=== PATIENT | male | born 1960 | race Caucasian/White ===

== ENCOUNTER 2019-12-29 10:41 | Outpatient (CLI) | payer OTHER, SELFPAY ==
--- NOTE | ~2019-12-29 | CT_ITS ---
EXAMINATION:CT lung screening DATE: 12/29/2019 11:10 INDICATION: Personal history of tobacco dependence. Current smoker with 40 pack year history. TECHNIQUE: Computed tomography (CT) of the chest was performed without intravenous contrast. Automate d exposure control and iterative reconstruction technique were employed. The dose-length product (DLP ) was 135.90 mGy-cm. COMPARISON: Chest CT 01/12/2019 FINDINGS: The lungs demonstrate mild atelectasis. There is a 3 mm nodule in left upper lobe. No pleur al effusion. The heart size is normal. There are coronary artery calcifications. No pericardial effus ion. There is a left chest wall pacer with leads in the right atrium and right ventricle. There is mi ld thoracic spondylosis. IMPRESSION: 1. Lung-RADS category 2: Benign appearance or behavior. Continue annual screening with noncontrast lo w-dose chest CT in 12 months. Reviewed, dictated and finalized at location A. IMPRESSION: 1. Lung-RADS category 2: Benign appearance or behavior. Continue annual screeni ng with noncontrast low-dose chest CT in 12 months.
== END 2019-12-29 10:42 | disposition home or self-care (01) ==
LOC: ANHIMG 10:48
PROVIDERS: PCP Family Medicine; Visit Provider Internal Medicine Critical Care Medicine
DX: Z12.2 Encounter for screening for malignant neoplasm of respiratory organs (principal); Z87.891 Personal history of nicotine dependence
CPT/HCPCS: G0297

== ENCOUNTER 2023-05-06 13:00 | Outpatient (CLI) | payer MEDICARE, SELFPAY ==
--- NOTE | ~2023-05-06 | CT_ITS ---
EXAMINATION: CT lung screening DATE: 05/06/2023 13:20 INDICATION: Tobacco use TECHNIQUE: Computed tomography (CT) of the chest was performed without intravenous contrast. The dose -length product was 147.51 mGy-cm. Automated exposure control and iterative reconstruction technique were employed. COMPARISON: CT dated 12/29/2019 FINDINGS: No significant pleural or pericardial effusion. No thoracic lymphadenopathy. There is ather osclerosis and ectasia of the aorta. There is a 5 mm right upper lobe nodule, image 35. There is a 6 mm right middle lobe nodule, image 62. There is a 4 mm right lower lobe nodule, image 61. There are c lustered 3 mm left lower lobe nodules. There is an 8 mm left upper lobe nodule, image 50. No pneumoth orax. No endobronchial lesions. IMPRESSION: 1. Multiple category 4B, very suspicious: Recommend pet/CT scan for further evaluation. Reviewed, dictated and finalized at location B. IMPRESSION: 1. Multiple category 4B, very suspicious: Recommend pet/CT scan for further ev aluation.
== END 2023-05-06 13:01 | disposition home or self-care (01) ==
PROVIDERS: PCP Family Medicine; Visit Provider Nurse Practitioner Family
DX: Z12.2 Encounter for screening for malignant neoplasm of respiratory organs (principal); F17.210 Nicotine dependence, cigarettes, uncomplicated
CPT/HCPCS: 71271

== ENCOUNTER 2023-05-21 07:19 | Outpatient (CLI) | payer MEDICARE, SELFPAY ==
--- NOTE | ~2023-05-21 | PE_ITS ---
EXAMINATION: PET skull to mid thigh DATE: 05/21/2023 10:58 INDICATION: Lung nodule TECHNIQUE: Blood glucose level was 166 mg/dL. 5.507 mCi of 18-fluorodeoxyglucose (18-FDG) was adminis tered i.v. Low dose computed tomography (CT) images were acquired from the base of the brain to the p roximal thighs for attenuation correction and anatomic localization. Positron emission tomography (PE T) images were acquired in the same distribution beginning 56 minutes after injection. Images includi ng fused PET/CT images were reconstructed in axial, coronal, and sagittal planes. Automated exposure control technique was employed. The dose-length product was 828.26mGy-cm. COMPARISON: Chest CT dated 05/16/2023 FINDINGS: Head/neck: There is symmetric increased activity in the oral cavity, laryngeal muscles and ocular muscles withou t CT correlate, likely physiologic. There is prominent mucosal thickening with mild associated FDG up take at the floor of the right maxillary sinus. No pathologically enlarged cervical lymphadenopathy o r other suspicious foci of increased FDG uptake in the visualized head or neck. Chest: Mild emphysema. No significant interval change in multiple subcentimeter pulmonary nodules scattered throughout both lungs, the largest measuring 8mm in the left upper lobe and 7 mm in the right upper l obe. These are all without appreciable increased FDG uptake with maximal SUV of the largest left uppe r lobe nodule of 1.4 which is significantly lower than the blood pool. No new or enlarging pulmonary nodules identified. Mild discoid atelectasis at the bilateral lung bases. Heart size is normal. Ather osclerotic coronary artery calcific a elder. Is also a dual-lead cardiac pacemaker/AICD with lead tips at the right atrial appendage and apex of the right ventricle. No pericardial effusion. No pathologi mara enlarged or FDG avid thoracic lymphadenopathy. Abdomen/pelvis/proximal thighs: Physiologic renal accumulation and excretion of FDG activity in the kidneys, bladder and along portio ns of ureters. Normal degree and heterogenous pattern of increased uptake throughout the liver withou t radiologic correlate or dominant FDG avid lesion. The gallbladder, pancreas, spleen and bilateral a drenal glands are normal. Mild to moderate uptake scattered throughout the bowels without radiologic correlate, also likely physiologic. Normal appendix. Prostatomegaly. No other abnormal foci of increa sed FDG uptake or pathologically enlarged lymphadenopathy in the abdomen, pelvis or proximal thighs. Musculoskeletal: No suspicious lytic, blastic or FDG avid bone lesions. IMPRESSION: 1. No significant FDG uptake associated with multiple scattered subcentimeter pulmonary nodules. Alth ough reassuring this does not absolutely exclude malignancy and would recommend 3 month follow-up low -dose noncontrast chest CT. 2. No other abnormal FDG avid lesions in the neck, chest, abdomen or pelvis to suggest malignancy or metastatic disease. Reviewed, dictated and finalized at location A. IMPRESSION: 1. No significant FDG uptake associated with multiple scattered subcentimeter p ulmonary nodules. Although reassuring this does not absolutely exclude malignan cy and would recommend 3 month follow-up low-dose noncontrast chest CT. 2. No other abnormal FDG avid lesions in the neck, chest, abdomen or pelvis to suggest malignancy or metastatic disease.
[2023-05-21 08:15] LABS: Glucose Point of Care 166 mg/dl (65-105)
== END 2023-05-21 07:20 | disposition home or self-care (01) ==
PROVIDERS: PCP Family Medicine; Visit Provider Nurse Practitioner Family
DX: R91.8 Other nonspecific abnormal finding of lung field (principal); R91.1 Solitary pulmonary nodule
CPT/HCPCS: 78815; A9552

== ENCOUNTER 2023-08-22 14:06 | Outpatient (CLI) | payer MEDICARE, SELFPAY ==
--- NOTE | ~2023-08-22 | CT_ITS ---
CT Scan of the Chest without Contrast: Clinical Indication: Nonspecific abnormal finding of lung field Technique: Contiguous sections were acquired throughout the chest without intravenous contrast. Dose reduction technique was used on this scan by utilizing automated exposure control and iterative recon struction technique. The dose-length product (DLP) was 293.75 mGy-cm. COMPARISON: 05/06/2023 Findings: There is no evidence of any significant mediastinal, hilar or axillary lymphadenopathy. There are ath erosclerotic calcifications of the aorta and coronary arteries. There is no evidence of pleural or pericardial effusion. Pulmonary nodules in the right upper and middle lobes, and left upper lobe, are decreased in size fro m prior exam. Reference nodule left upper lobe is decreased, now measuring 4 mm in diameter. Images through the upper abdomen reveal no abnormalities. Impression: Bilateral pulmonary nodules are decreased in size from prior exam, most compatible with slowly resolv ing infectious/inflammatory process. Reviewed, dictated and finalized at location . FOOD SERVICES MANAGER Impression: Bilateral pulmonary nodules are decreased in size from prior exam, most compati ble with slowly resolving infectious/inflammatory process.
== END 2023-08-22 14:07 | disposition home or self-care (01) ==
PROVIDERS: PCP Family Medicine; Visit Provider Nurse Practitioner Family
DX: R91.8 Other nonspecific abnormal finding of lung field (principal)
CPT/HCPCS: 71250

== ENCOUNTER 2024-08-24 10:27 | Outpatient (CLI) | payer MEDICARE, SELFPAY ==
--- NOTE | ~2024-08-24 | CT_ITS ---
CT Scan of the Chest without Contrast: Clinical Indication: Lung cancer screening, nicotine dependence Technique: Contiguous sections were acquired throughout the chest without intravenous contrast. Dose reduction technique was used on this scan by utilizing automated exposure control and iterative recon struction technique. The dose-length product (DLP) was 112.08 mGy-cm. COMPARISON: 08/22/2023 Findings: There is no evidence of any significant mediastinal, hilar or axillary lymphadenopathy. Coronary sheeba ry calcifications are present. There is no evidence of pleural or pericardial effusion. There are multiple new, scattered, subcentimeter pulmonary nodules bilaterally, involving all pulmona ry lobes. Largest nodules in the right lower lobe measuring 7 mm (axial image 57). Images through the upper abdomen reveal stable low-density right adrenal nodule, compatible with yumiko iain. Impression: Lung RADS 4A: Suspicious. 3 month follow-up CT recommended. Reviewed, dictated and finalized at [facility]. ICE COORDINATOR Impression: Lung RADS 4A: Suspicious. 3 month follow-up CT recommended.
--- OUTSIDE RECORDS SUMMARY | 2024-08-24 11:31 | XMS_ITS | Encounter Summary ---
Author Organization [facility] Facility Care Team Providers Care Bog Worker Name Role Phone Loco Linares MD Primary Care Provider [phone] [phone] Peewee Cornelius MD Unavailable [phone] Encounter Details Date Type Department Care Team (Latest Contact Info) Description 09/09/2018 Orders Only [facility] CLINCONV ProviderMadai MD [address] [place] [address] Social History Tobacco Use Types Packs/Day Years Used Date Smoking Tobacco: Never Assessed Sex and Gender Information Value Date Recorded Sex Assigned at Not on file Legal Sex Male 2:53 AM FLAT FOLDER Gender Identity Not on file Sexual Orientation Not on file documented as of this encounter Plan of Treatment Not on file documented as of this encounter Procedures Procedure Name Priority Date/Time Associated Diagnosis Comments CARDIOLOGY REPORT 09/09/2018 12: 00 AM FLAT FOLDER documented in this encounter Results * CARDIOLOGY REPORT (09/09/2018 12:00 AM FLAT FOLDER) Anatomical Region Laterality Modality Other Narrative 09/09/2018 12:00 AM FLAT FOLDER Ordered by an unspecified provider. Historical Provider [facility] CARMELO MEDRANO Final Result documented in this encounter Visit Diagnoses Not on filedocumented in this encounter Care Teams Bog Worker Relationship Specialty Start Date End Date Loco Linares MD PCP - General Family Medicine 12/06/18 Peewee Cornelius MD [address] [place] [address] Tonnage Compilation Clerk Cardiology 04/15/19 documented as of this encounter
--- OUTSIDE RECORDS SUMMARY | 2024-08-24 11:31 | XMS_ITS | Encounter Summary ---
Author Organization [facility] Facility Care Team Providers Care Epoxy Coatings Installer Name Role Phone Loco Linares MD Primary Care Provider [phone] Peewee Cornelius MD Unavailable [phone] Encounter Details Date Type Department Care Team (Latest Contact Info) Description 03/13/2018 Orders Only [facility] CLINCONV ProviderMadai MD [address] [place] [address] Social History Tobacco Use Types Packs/Day Years Used Date Smoking Tobacco: Never Assessed Sex and Gender Information Value Date Recorded Sex Assigned at Not on file Legal Sex Male 2:53 AM SCAFFOLD BUILDER Gender Identity Not on file Sexual Orientation Not on file documented as of this encounter Plan of Treatment Not on file documented as of this encounter Procedures Procedure Name Priority Date/Time Associated Diagnosis Comments CARDIOLOGY REPORT 03/14/2018 12: 00 AM CDT documented in this encounter Results * CARDIOLOGY REPORT (03/14/2018 12:00 AM CDT) Anatomical Region Laterality Modality Other Narrative 03/14/2018 12:00 AM CDT Ordered by an unspecified provider. Historical Provider [facility] CARMELO MEDRANO Final Result documented in this encounter Visit Diagnoses Not on filedocumented in this encounter Care Teams Epoxy Coatings Installer Relationship Specialty Start Date End Date Loco Linares MD PCP - General Family Medicine 12/06/18 Peewee Cornelius MD [address] [place] [address] Bilingual Sales Consultant Cardiology 04/15/19 documented as of this encounter
--- OUTSIDE RECORDS SUMMARY | 2024-08-24 11:31 | XMS_ITS | Encounter Summary ---
Author Organization [facility] Facility Care Team Providers Care Tamale Machine Feeder Name Role Phone Loco Linares MD Primary Care Provider [phone] [phone] Peewee Cornelius MD Unavailable [phone] Encounter Details Date Type Department Care Team (Latest Contact Info) Description 06/09/2018 Orders Only [facility] CLINCONV ProviderMadai MD [address] [place] [address] Social History Tobacco Use Types Packs/Day Years Used Date Smoking Tobacco: Never Assessed Sex and Gender Information Value Date Recorded Sex Assigned at Not on file Legal Sex Male 2:53 AM SPEECH PATHOLOGIST Gender Identity Not on file Sexual Orientation Not on file documented as of this encounter Plan of Treatment Not on file documented as of this encounter Procedures Procedure Name Priority Date/Time Associated Diagnosis Comments CARDIOLOGY REPORT 06/09/2018 12: 00 AM SPEECH PATHOLOGIST documented in this encounter Results * CARDIOLOGY REPORT (06/09/2018 12:00 AM SPEECH PATHOLOGIST) Anatomical Region Laterality Modality Other Narrative 06/09/2018 12:00 AM SPEECH PATHOLOGIST Ordered by an unspecified provider. Historical Provider [facility] CARMELO MEDRANO Final Result documented in this encounter Visit Diagnoses Not on filedocumented in this encounter Care Teams Tamale Machine Feeder Relationship Specialty Start Date End Date Loco Linares MD PCP - General Family Medicine 12/06/18 Peewee Cornelius MD [address] [place] [address] Armored Car Guard Cardiology 04/15/19 documented as of this encounter
--- OUTSIDE RECORDS SUMMARY | 2024-08-24 11:32 | XMS_ITS | Encounter Summary ---
Author Organization [facility] Facility Care Team Providers Care Warp Knitting Machine Operator Name Role Phone Loco Linares MD Primary Care Provider [phone] Peewee Cornelius MD Unavailable [phone] Encounter Details Date Type Department Care Team (Latest Contact Info) Description 03/11/2017 Orders Only [facility] CLINCONV ProviderMadai MD [address] [place] [address] Social History Tobacco Use Types Packs/Day Years Used Date Smoking Tobacco: Never Assessed Sex and Gender Information Value Date Recorded Sex Assigned at Not on file Legal Sex Male 2:53 AM BACK PANEL PADDER Gender Identity Not on file Sexual Orientation Not on file documented as of this encounter Plan of Treatment Not on file documented as of this encounter Procedures Procedure Name Priority Date/Time Associated Diagnosis Comments CARDIOLOGY REPORT 03/12/2017 12: 00 AM CDT documented in this encounter Results * CARDIOLOGY REPORT (03/12/2017 12:00 AM CDT) Anatomical Region Laterality Modality Other Narrative 03/12/2017 12:00 AM CDT Ordered by an unspecified provider. Historical Provider [facility] CARMELO MEDRANO Final Result documented in this encounter Visit Diagnoses Not on filedocumented in this encounter Care Teams Warp Knitting Machine Operator Relationship Specialty Start Date End Date Loco Linares MD PCP - General Family Medicine 12/06/18 Peewee Cornelius MD [address] [place] [address] Research Director Cardiology 04/15/19 documented as of this encounter
--- OUTSIDE RECORDS SUMMARY | 2024-08-24 11:32 | XMS_ITS | Encounter Summary ---
Author Organization [facility] Facility Care Team Providers Care Flat Sorting Machine Clerk Name Role Phone Loco Linares MD Primary Care Provider [phone] Peewee Cornelius MD Unavailable Encounter Details Date Type Department Care Team (Latest Contact Info) Description 02/20/2016 Orders Only [facility] CLINCONV ProviderMadai MD [address] [place] [address] Social History Tobacco Use Types Packs/Day Years Used Date Smoking Tobacco: Never Assessed Sex and Gender Information Value Date Recorded Sex Assigned at Not on file Legal Sex Male 2:53 AM SILVER SPRAY WORKER Gender Identity Not on file Sexual Orientation Not on file documented as of this encounter Plan of Treatment Not on file documented as of this encounter Procedures Procedure Name Priority Date/Time Associated Diagnosis Comments CARDIOLOGY REPORT 02/21/2016 12: 00 AM CDT documented in this encounter Results * CARDIOLOGY REPORT (02/21/2016 12:00 AM CDT) Anatomical Region Laterality Modality Other Narrative 02/21/2016 12:00 AM CDT Ordered by an unspecified provider. Historical Provider [facility] C[facility] CARMELO MEDRANO Final Result documented in this encounter Visit Diagnoses Not on filedocumented in this encounter Care Teams Flat Sorting Machine Clerk Relationship Specialty Start Date End Date Loco Linares MD PCP - General Family Medicine 12/06/18 Peewee Cornelius MD [address] [place] [address] Director Of Planning Cardiology 04/15/19 documented as of this encounter
--- OUTSIDE RECORDS SUMMARY | 2024-08-24 11:32 | XMS_ITS | Encounter Summary ---
Author Organization [facility] Facility Care Team Providers Care Federal District Law Clerk Name Role Phone Loco Linares MD Primary Care Provider [phone] Peewee Cornelius MD Unavailable [phone] Encounter Details Date Type Department Care Team (Latest Contact Info) Description 05/14/2017 Orders Only [facility] CLINCONV ProviderMadai MD [address] [place] [address] Social History Tobacco Use Types Packs/Day Years Used Date Smoking Tobacco: Never Assessed Sex and Gender Information Value Date Recorded Sex Assigned at Not on file Legal Sex Male 2:53 AM FURNACE BUILDER Gender Identity Not on file Sexual Orientation Not on file documented as of this encounter Plan of Treatment Not on file documented as of this encounter Procedures Procedure Name Priority Date/Time Associated Diagnosis Comments SCAN - LABS 05/15/2017 12:00 AM CDT documented in this encounter Results * SCAN - LABS (05/15/2017 12:00 AM CDT) Narrative 05/15/2017 12:00 AM CDT Ordered by an unspecified provider. Historical Provider Final Res ult documented in this encounter Visit Diagnoses Not on filedocumented in this encounter Care Teams Federal District Law Clerk Relationship Specialty Start Date End Date Loco Linares MD PCP - General Family Medicine 12/06/18 Peewee Cornelius MD [address] [place] [address] Stock Or Delivery Clerk Cardiology 04/15/19 documented as of this encounter
--- OUTSIDE RECORDS SUMMARY | 2024-08-24 11:32 | XMS_ITS | Encounter Summary ---
Author Organization [facility] Facility Care Team Providers Care Fiction And Nonfiction Prose Writer Name Role Phone Loco Linares MD Primary Care Provider [phone] Peewee Cornelius MD Unavailable [phone] Encounter Details Date Type Department Care Team (Latest Contact Info) Description 06/16/2016 Orders Only [facility] CLINCONV Provider, MD Madai [address] [place] [address] Social History Tobacco Use Types Packs/Day Years Used Date Smoking Tobacco: Never Assessed Sex and Gender Information Value Date Recorded Sex Assigned at Not on file Legal Sex Male 2:53 AM DRUM PLATER Gender Identity Not on file Sexual Orientation Not on file documented as of this encounter Plan of Treatment Not on file documented as of this encounter Procedures Procedure Name Priority Date/Time Associated Diagnosis Comments SCAN - LABS 06/05/2016 12:00 AM DRUM PLATER documented in this encounter Results * SCAN - LABS (06/05/2016 12:00 AM DRUM PLATER) Narrative 06/05/2016 12:00 AM DRUM PLATER Ordered by an unspecified provider. Historical Provider Final Res ult documented in this encounter Visit Diagnoses Not on filedocumented in this encounter Care Teams Fiction And Nonfiction Prose Writer Relationship Specialty Start Date End Date Loco Linares MD PCP - General Family Medicine 12/06/18 Peewee Cornelius MD [address] [place] [address] Tender Labor Cardiology 04/15/19 documented as of this encounter
--- OUTSIDE RECORDS SUMMARY | 2024-08-24 11:32 | XMS_ITS | Encounter Summary ---
Author Organization [facility] Facility Care Team Providers Care Process Helper Name Role Phone Loco Linares MD Primary Care Provider [phone] Peewee Cornelius MD Unavailable [phone] Encounter Details Date Type Department Care Team (Latest Contact Info) Description 07/11/2017 Orders Only [facility] CLINCONV ProviderMadai MD [address] [place] [address] Social History Tobacco Use Types Packs/Day Years Used Date Smoking Tobacco: Never Assessed Sex and Gender Information Value Date Recorded Sex Assigned at Not on file Legal Sex Male 2:53 AM BEEF SKINNER Gender Identity Not on file Sexual Orientation Not on file documented as of this encounter Plan of Treatment Not on file documented as of this encounter Procedures Procedure Name Priority Date/Time Associated Diagnosis Comments CARDIOLOGY REPORT 07/11/2017 12: 00 AM BEEF SKINNER documented in this encounter Results * CARDIOLOGY REPORT (07/11/2017 12:00 AM BEEF SKINNER) Anatomical Region Laterality Modality Other Narrative 07/11/2017 12:00 AM BEEF SKINNER Ordered by an unspecified provider. Historical Provider [facility] CARMELO MEDRANO Final Result documented in this encounter Visit Diagnoses Not on filedocumented in this encounter Care Teams Process Helper Relationship Specialty Start Date End Date Loco Linares MD PCP - General Family Medicine 12/06/18 Peewee Cornelius MD [address] [place] [address] Jig And Fixture Maker Cardiology 04/15/19 documented as of this encounter
--- OUTSIDE RECORDS SUMMARY | 2024-08-24 11:32 | XMS_ITS | Encounter Summary ---
Author Organization [facility] Facility Care Team Providers Care Pediatrics Teacher Name Role Phone Loco Linares MD Primary Care Provider [phone] [phone] Peewee Cornelius MD Unavailable [phone] Encounter Details Date Type Department Care Team (Latest Contact Info) Description 08/27/2016 Orders Only [facility] CLINCONV ProviderMadai MD [address] [place] [address] Social History Tobacco Use Types Packs/Day Years Used Date Smoking Tobacco: Never Assessed Sex and Gender Information Value Date Recorded Sex Assigned at Not on file Legal Sex Male 2:53 AM HOME SERVICE DEMONSTRATOR Gender Identity Not on file Sexual Orientation Not on file documented as of this encounter Plan of Treatment Not on file documented as of this encounter Procedures Procedure Name Priority Date/Time Associated Diagnosis Comments CARDIOLOGY REPORT 08/28/2016 12: 00 AM HOME SERVICE DEMONSTRATOR documented in this encounter Results * CARDIOLOGY REPORT (08/28/2016 12:00 AM HOME SERVICE DEMONSTRATOR) Anatomical Region Laterality Modality Other Narrative 08/28/2016 12:00 AM HOME SERVICE DEMONSTRATOR Ordered by an unspecified provider. Historical Provider [facility] CARMELO MEDRANO Final Result documented in this encounter Visit Diagnoses Not on filedocumented in this encounter Care Teams Pediatrics Teacher Relationship Specialty Start Date End Date Loco Linares MD PCP - General Family Medicine 12/06/18 Peewee Cornelius MD [address] [place] [address] Architectural Modeler Cardiology 04/15/19 documented as of this encounter
--- OUTSIDE RECORDS SUMMARY | 2024-08-24 11:32 | XMS_ITS | CONTINUITY OF CARE DOCUMENT ---
Author Name addis heribertoaida Address Unknown Organization [facility] Address [address] [place] [address] [address] [place] [address] Phone [phone] Care Team Providers Care R D Internship Name Role Phone Mynor VELASCO, To Allen Unavailable [phone] CINDA ORTIZ MD Unavailable CINDA ORTIZ MD Unavailable [phone] [employer] Payer name Policy type / Coverage type Vitaly red democrat ID SHIRIN PPO [employer] Other [id number]
--- OUTSIDE RECORDS SUMMARY | 2024-08-24 11:32 | XMS_ITS | Encounter Summary ---
Author Organization [facility] Facility Care Team Providers Care Refrigeration Mechanic Name Role Phone Loco Linares MD Primary Care Provider [phone] [phone] Peewee Cornelius MD Unavailable [phone] Encounter Details Date Type Department Care Team (Latest Contact Info) Description 11/26/2016 Orders Only [facility] CLINCONV ProviderMadai MD [address] [place] [address] Social History Tobacco Use Types Packs/Day Years Used Date Smoking Tobacco: Never Assessed Sex and Gender Information Value Date Recorded Sex Assigned at Not on file Legal Sex Male 2:53 AM BOILER HOUSE INSPECTOR Gender Identity Not on file Sexual Orientation Not on file documented as of this encounter Plan of Treatment Not on file documented as of this encounter Procedures Procedure Name Priority Date/Time Associated Diagnosis Comments CARDIOLOGY REPORT 11/26/2016 12: 00 AM CDT documented in this encounter Results * CARDIOLOGY REPORT (11/26/2016 12:00 AM CDT) Anatomical Region Laterality Modality Other Narrative 11/26/2016 12:00 AM CDT Ordered by an unspecified provider. Historical Provider [facility] CARMELO MEDRANO Final Result documented in this encounter Visit Diagnoses Not on filedocumented in this encounter Care Teams Refrigeration Mechanic Relationship Specialty Start Date End Date Loco Linares MD PCP - General Family Medicine 12/06/18 Peewee Cornelius MD [address] [place] [address] Cook Chief Cardiology 04/15/19 documented as of this encounter
--- OUTSIDE RECORDS SUMMARY | 2024-08-24 11:32 | XMS_ITS | Clinical Summary ---
Author Organization [facility] (formerly [facility] Address [address] [place] [address] Care Team Providers Care Liaison Inspection Laboratory Assistant Name Role Phone Loco Linares MD Primary Care Provider [phone] Peewee Cornelius MD Unavailable [phone] Allergies No known active allergies Medications isosorbide mononitrate ER (IMDUR) 30 mg 24 hr tablet Take 1 tablet (30 mg total) by mouth daily Active spironolactone (ALDACTONE) 25 mg tablet Take 1 tablet (25 mg total) by mouth daily Active metoprolol XL (TOPROL-XL) 50 mg 24 hr tablet Take 1.5 tablets (75 mg total) by mouth daily Active aspirin 81 mg enteric coated tablet Take 1 tablet (81 mg total) by mouth daily Active potassium chloride ER (KLOR-CON) 20 mEq CR tablet 1 tablet (20 mEq total) daily Active furosemide (LASIX) 40 mg tablet Take 1 tablet (40 mg total) by mouth daily 11/08/2019 Active metFORMIN XR (GLUCOPHAGE XR) 500 mg 24 hr tablet Take 4 tablets (2,000 mg total) by mouth daily 05/11/2020 Active lisinopriL (PRINIVIL,ZESTRI L) 2.5 mg tablet Take 1 tablet (2.5 mg total) by mouth daily 05/01/2022 Active glipiZIDE (GLUCOTROL) 5 mg tablet Take 1 tablet (5 mg total) by mouth every morning 07/03/2022 Active Mounjaro 2.5 mg/0.5 mL pen injector INJECT 0.5 ML UNDER THE SKIN ONCE A WEEK ON THE SAME DAY. 06/04/2023 Active atorvastatin (LIPITOR) 80 mg tablet TAKE 1 TABLET BY MOUTH EVERY DAY 90 tablet 1 04/06/2024 Active Active Problems Problem Noted Date Diagnosed Date Coronary artery disease invo lving igiugig coronary artery of igiugig heart without angina pectoris 11/17/2020 ICD (implantable cardioverter-defibrillator) in place 12/11/2018 Assessment & Plan (09/15/2020 3:34 PM WEAPONS ELECTRICAL ENGINEERING OFFICER): Check today shows normal function. Replacement device done 1 month ago. 40% a pace no V pacing excellent lead function. Battery 12 years. No events Assessment & Plan (12/10/2019 2:10 PM CDT): Check today shows normal function. Underlying rhythm sinus bradycardia. 60% a pace no V pacing excellent lead function. Assessment & Plan (12/11/2018 1:54 PM CDT): Interrogation today shows normal function. Underlying rhythm sinus Ayush. 56% a pace no V paced excellent lead function. No arrhythmias. Battery good Atrial flutter (CMS/HCC) 12/11/2018 Assessment & Plan (08/01/2020 11:44 AM WEAPONS ELECTRICAL ENGINEERING OFFICER): Remotely ablated. No recurrence. No indication for antiarrhythmics or anticoagulants Assessment & Plan (12/10/2019 2:14 PM CDT): Remotely ablated maintaining sinus rhythm. No indication for antiarrhythmics or anticoagulants Assessment & Plan (12/11/2018 1:53 PM CDT): Remotely ablated. Ablation done April 2017 No AFib or flutter on device checks. No indication for antiarrhythmics or anticoagulation Mixed hyperlipidemia 12/11/2018 Assessment & Plan (12/10/2019 2:13 PM CDT): Recent lipid panel good. Continue atorvastatin Assessment & Plan (12/11/2018 1:57 PM CDT): Continue Lipitor 80 mg daily. Upcoming lipid panel Ischemic cardiomyopathy 12/11/2018 Assessment & Plan (12/10/2019 2:14 PM CDT): Continue Toprol MELANIE-inhibitor spironolactone nitrates Assessment & Plan (12/11/2018 1:58 PM CDT): No heart failure. Continue current medications. No evidence of ischemia. Sick sinus syndrome (CMS/HCC) 02/20/2016 Assessment & Plan (08/01/2020 11:43 AM WEAPONS ELECTRICAL ENGINEERING OFFICER): Will be symptomatic without device replacement. Histogram showed good rate response. Assessment & Plan (12/10/2019 2:13 PM CDT): Histogram showed good rate response. Cardiomyopathy 02/03/2016 Overview (04/16/2019): Last echo showed normal LV function. Repeat the echo done on the during atrial flutter showed no cardiomyopathy with the ejection fraction around the 25-30%. Assessment & Plan (09/15/2020 3:34 PM WEAPONS ELECTRICAL ENGINEERING OFFICER): Class 1. Continue lisinopril Imdur Toprol spironolactone Assessment & Plan (08/01/2020 11:43 AM WEAPONS ELECTRICAL ENGINEERING OFFICER): Improved. Continue Toprol and lisinopril. Assessment & Plan (12/10/2019 2:14 PM CDT): Continue Imdur lisinopril and Toprol and spironolactone. Pulmonary emboli 02/03/2016 Smoking 02/03/2016 Abscess of tonsil 07/19/2014 Resolved Problems Problem Noted Date Diagnosed Date Resolved Date Coronary artery disease of n ative artery of igiugig heart with stable angina pectoris 04/16/2019 11/17/2020 Assessment & Plan (09/15/2020 3:34 PM WEAPONS ELECTRICAL ENGINEERING OFFICER): Continue aspirin Lipitor Toprol Assessment & Plan (12/10/2019 2:15 PM CDT): Continue aspirin and statin Dyslipidemia 02/03/2016 07/10/2021 Assessment & Plan (08/01/2020 11:44 AM WEAPONS ELECTRICAL ENGINEERING OFFICER): Continue statin Encounters Date Type Department Care Team Description 07/30/2024 1:45 PM WEAPONS ELECTRICAL ENGINEERING OFFICER Office Visit [facility] Cardiology [facility] [place] [address] Peewee Cornelius MD Coronary artery disease involving igiugig coronary artery of igiugig heart without angina pectoris (Primary Dx); Ischemic cardiomyopathy; ICD (implantable cardioverter-defibrill ator) in place; Mixed hyperlipidemia; Smoking 07/30/2024 1:15 PM WEAPONS ELECTRICAL ENGINEERING OFFICER Ancillary Procedure [facility] Cardiology [address] [place] [address] ICD (implantable cardioverter-defibrill ator) in place; Ischemic cardiomyopathy 07/30/2024 Orders Only [facility] Cardiology [address] [place] [address] Peewee Cornelius MD Ischemic cardiomyopathy (Primary Dx); ICD (implantable cardioverter-defibrill ator) in place; Sick sinus syndrome (CMS/HCC) (HCC) from Last 3 Months Surgical History Surgery Date Site/Laterality Comments ABLATION Medical History Medical History Date Comments CAD (coronary artery disease) Cardiomyopathy (HCC) A-fib (CMS/HCC) (HCC) Sleep apnea Dyslipidemia Pulmonary emboli (HCC) Hyperlipidemia Family History Medical History Relation Name Comments Diabetes Father Family history of diabetes mellitus - (Added by TW Conv) Heart disease Father Family history of cardiac disorder - (Added by TW Conv) Relation Name Status Comments Father Mother Alive Social History Tobacco Use Types Packs/Day Years Used Date Smoking Tobacco: Every Day Smokeless Tobacco: Never Sex and Gender Information Value Date Recorded Sex Assigned at Not on file Legal Sex Male 2:53 AM WEAPONS ELECTRICAL ENGINEERING OFFICER Gender Identity Not on file Sexual Orientation Not on file Obstetrics History Last Filed Vital Signs Vital Sign Reading Time Taken Comments Blood Pressure 120/70 07/30/2024 2:25 PM WEAPONS ELECTRICAL ENGINEERING OFFICER Pulse 85 07/30/2024 2:25 PM WEAPONS ELECTRICAL ENGINEERING OFFICER Temperature 36.5 ??C (97.7 ??F) 01/08/2022 4:33 PM CD T Respiratory Rate - - Oxygen Saturation 96% 07/11/2023 1:31 PM WEAPONS ELECTRICAL ENGINEERING OFFICER Inhaled Oxygen Concentration - - Weight 84.8 kg (187 lb) 07/30/2024 2:25 PM WEAPONS ELECTRICAL ENGINEERING OFFICER Height 170.2 cm (5' 7 ) 07/30/2024 2:25 PM WEAPONS ELECTRICAL ENGINEERING OFFICER Body Mass Index 29.29 07/30/2024 2:25 PM WEAPONS ELECTRICAL ENGINEERING OFFICER Plan of Treatment Health Maintenance Due Date Last Done Comments Colon Cancer Screening-Colonoscopy 1958 Depression Screening 1958 Fall Risk Assessment 1958 Hepatitis C Screening 1958 Prostate Cancer Screening-PSA 1958 Pneumococcal vaccine 65+ (1 of 2 - PCV) 1964 DTaP/Tdap/Td Vaccine (1 - Tdap) 1969 Hepatitis B Screening 1976 Zoster Vaccine (1 of 2) 2008 Abdominal Aortic Aneurysm (AAA) Screen 2023 Well Visit 65+ 2023 Covid-19 Vaccine (2 - season) 03/29/202405/2021 Influenza Vaccine (#1) 2024 Procedures Procedure Name Priority Date/Time Associated Diagnosis Comments COMPREHENSIVE METABOLIC PANEL Routine 07/17/2024 1:28 PM WEAPONS ELECTRICAL ENGINEERING OFFICER Coronary artery disease involving igiugig coronary artery of igiugig heart without angina pectoris Mixed hyperlipidemia LIPID PANEL Routine 07/17/2024 1:28 PM WEAPONS ELECTRICAL ENGINEERING OFFICER Coronary artery disease involving igiugig coronary artery of igiugig heart without angina pectoris Mixed hyperlipidemia from Last 3 Months Results * Lipid panel (07/17/2024 1:28 PM WEAPONS ELECTRICAL ENGINEERING OFFICER) Pathologist [facility] Cholesterol 109 100 - 199 mg/dL [facility] - 01 Triglycerides 86 0 - 149 mg/dL [facility] - 01 HDL Cholesterol 43 >39 mg/dL [facility] - 01 VLDL 17 5 - 40 mg/dL [facility] - 01 LDL, calculated 49 0 - 99 mg/dL [facility] - 01 Blood 07/17/2024 1:28 PM WEAPONS ELECTRICAL ENGINEERING OFFICER 07/17/2024 Narrative [facility] - 07/18/2024 9:36 AM WEAPONS ELECTRICAL ENGINEERING OFFICER Performed at: ??01 - [facility] [address] ??[id number] Administrative Assistant Office Manager: Rene Arellano PhD, Phone: ??[phone] us Peewee Cornelius MD LAB BLOOD ORDERABLES Final Result [facility] - [facility] * (ABNORMAL) Comprehensive metabolic panel (07/17/2024 1:28 PM WEAPONS ELECTRICAL ENGINEERING OFFICER) Glucose 119(H) 70 - 99 mg/dL [facility] - 01 BUN 14 8 - 27 mg/dL [facility] - 01 Creatinine, Serum 0.73(L) 0.76 - 1.27 mg/dL [facility] - 01 eGFR 100 >59 mL/min/1.7 3 [facility] - 01 BUN/creat ratio 19 10 - 24 [facility] - 01 Sodium 137 134 - 144 mmol/L [facility] - 01 Potassium, sr 4.6 3.5 - 5.2 mmol/L [facility] - 01 Chloride 95(L) 96 - 106 mmol/L [facility] - 01 CO2 27 20 - 29 mmol/L [facility] - 01 Calcium 9.6 8.6 - 10.2 mg/dL [facility] - 01 Protein, sr 6.7 6.0 - 8.5 g/dL [facility] - 01 Albumin 4.7 3.9 - 4.9 g/dL [facility] - 01 Globulin, Total 2.0 1.5 - 4.5 g/dL [facility] - 01 Bilirubin, Total 0.8 0.0 - 1.2 mg/dL [facility] - 01 Alk phos 92 44 - 121 IU/L [facility] - 01 AST 25 0 - 40 IU/L [facility] - 01 ALT 27 0 - 44 IU/L [facility] - 01 Blood 07/17/2024 1:28 PM WEAPONS ELECTRICAL ENGINEERING OFFICER 07/17/2024 Narrative [facility] - 07/18/2024 9:36 AM WEAPONS ELECTRICAL ENGINEERING OFFICER Performed at: ??01 - [facility] [address] ??[id number] Administrative Assistant Office Manager: Rene Arellano PhD, Phone: ??[phone] Specimen Comment: A courtesy copy of this report has been sent to [phone], [phone]- Specimen Comment: [id number] Peewee Cornelius MD LAB BLOOD ORDERABLES Final Result [facility] 01 from Last 3 Months Insurance [facility]IC[facility] Address: [address] [address] [employer]ICARE [facility] Address: [address] [address] Care Teams Liaison Inspection Laboratory Assistant Relationship Specialty Start Date End Date Loco Linares MD PCP - General Family Medicine 12/06/18 Peewee Cornelius MD [address] [place] [address] Mold Builder Cardiology 04/15/19
--- OUTSIDE RECORDS SUMMARY | 2024-08-24 11:32 | XMS_ITS | Encounter Summary ---
Author Organization [facility] Facility Care Team Providers Care Vegetable Ii Farmworker Name Role Phone Loco Linares MD Primary Care Provider [phone] Peewee Cornelius MD Unavailable [phone] Encounter Details Date Type Department Care Team (Latest Contact Info) Description 09/07/2013 Orders Only [facility] ProviderMaadi MD [address] [place] [address] Social History Tobacco Use Types Packs/Day Years Used Date Smoking Tobacco: Never Assessed Sex and Gender Information Value Date Recorded Sex Assigned at Not on file Legal Sex Male 2:53 AM CARBON SETTER Gender Identity Not on file Sexual Orientation Not on file documented as of this encounter Plan of Treatment Not on file documented as of this encounter Procedures Procedure Name Priority Date/Time Associated Diagnosis Comments CARDIOLOGY REPORT 11/27/2016 12: 00 AM CDT documented in this encounter Results * CARDIOLOGY REPORT (11/27/2016 12:00 AM CDT) Anatomical Region Laterality Modality Other Narrative 11/27/2016 12:00 AM CDT Ordered by an unspecified provider. Historical Provider [facility] CARMELO MEDRANO Final Result documented in this encounter Visit Diagnoses Not on filedocumented in this encounter Care Teams Vegetable Ii Farmworker Relationship Specialty Start Date End Date Loco Linares MD PCP - General Family Medicine 12/06/18 Peewee Cornelius MD [address] [place] [address] Funnel Coater Cardiology 04/15/19 documented as of this encounter
--- OUTSIDE RECORDS SUMMARY | 2024-08-24 11:32 | XMS_ITS | Encounter Summary ---
Author Organization [facility] Facility Care Team Providers Care Autocutter Name Role Phone Loco Linares MD Primary Care Provider [phone] Peewee Cornelius MD Unavailable [phone] Encounter Details Date Type Department Care Team (Latest Contact Info) Description 05/07/2017 Orders Only [facility] ProviderMadai MD [address] [place] [address] Social History Tobacco Use Types Packs/Day Years Used Date Smoking Tobacco: Never Assessed Sex and Gender Information Value Date Recorded Sex Assigned at Not on file Legal Sex Male 2:53 AM DIVING BOARD ASSEMBLER Gender Identity Not on file Sexual Orientation Not on file documented as of this encounter Plan of Treatment Not on file documented as of this encounter Procedures Procedure Name Priority Date/Time Associated Diagnosis Comments CARDIOLOGY REPORT 05/21/2017 12: 00 AM CDT CARDIOLOGY REPORT 05/21/2017 12: 00 AM CDT documented in this encounter Results * CARDIOLOGY REPORT (05/21/2017 12:00 AM CDT) Anatomical Region Laterality Modality Other Narrative 05/21/2017 12:00 AM CDT Ordered by an unspecified provider. Historical Provider [facility] PROCE DURES Final Result * CARDIOLOGY REPORT (05/21/2017 12:00 AM CDT) Anatomical Region Laterality Modality Other Narrative 05/21/2017 12:00 AM CDT Ordered by an unspecified provider. Historical Provider [facility] PROCE DURES Final Result documented in this encounter Visit Diagnoses Not on filedocumented in this encounter Care Teams Autocutter Relationship Specialty Start Date End Date Loco Linares MD PCP - General Family Medicine 12/06/18 Peewee Cornelius MD [address] [place] [address] [address] Molder Operator Cardiology 04/15/19 documented as of this encounter
--- OUTSIDE RECORDS SUMMARY | 2024-08-24 11:32 | XMS_ITS | Encounter Summary ---
Author Organization [facility] Facility Care Team Providers Care Earth Science Faculty Member Name Role Phone Loco Linares MD Primary Care Provider [phone] Peewee Cornelius MD Unavailable [phone] Encounter Details Date Type Department Care Team (Latest Contact Info) Description 12/09/2017 Orders Only [facility] ProviderMadai MD [address] [place] [address] Social History Tobacco Use Types Packs/Day Years Used Date Smoking Tobacco: Never Assessed Sex and Gender Information Value Date Recorded Sex Assigned at Not on file Legal Sex Male 2:53 AM SALES ANALYTICS MANAGER Gender Identity Not on file Sexual Orientation Not on file documented as of this encounter Plan of Treatment Not on file documented as of this encounter Procedures Procedure Name Priority Date/Time Associated Diagnosis Comments CARDIOLOGY REPORT 12/09/2017 12: 00 AM CDT documented in this encounter Results * CARDIOLOGY REPORT (12/09/2017 12:00 AM CDT) Anatomical Region Laterality Modality Other Narrative 12/09/2017 12:00 AM CDT Ordered by an unspecified provider. Historical Provider [facility] CARMELO MEDRANO Final Result documented in this encounter Visit Diagnoses Not on filedocumented in this encounter Care Teams Earth Science Faculty Member Relationship Specialty Start Date End Date Loco Linares MD PCP - General Family Medicine 12/06/18 Peewee Cornelius MD [address] [place] [address] Health And Wellness Coach Cardiology 04/15/19 documented as of this encounter
--- OUTSIDE RECORDS SUMMARY | 2024-08-24 11:32 | XMS_ITS | Encounter Summary ---
Author Organization [facility] Facility Care Team Providers Care Interim Controller Name Role Phone Loco Linares MD Primary Care Provider [phone] Peewee Cornelius MD Unavailable [phone] Encounter Details Date Type Department Care Team (Latest Contact Info) Description 05/06/2017 Orders Only [facility] ProviderMadai MD [address] [place] [address] Social History Tobacco Use Types Packs/Day Years Used Date Smoking Tobacco: Never Assessed Sex and Gender Information Value Date Recorded Sex Assigned at Not on file Legal Sex Male 2:53 AM SPINNER TENDER Gender Identity Not on file Sexual Orientation [...] on filedocumented in this encounter Care Teams Interim Controller Relationship Specialty Start Date End Date Loco Linares MD PCP - General Family Medicine 12/06/18 Peewee Cornelius MD [address] [place] [address] [address] Transfer Table Operator Helper Cardiology 04/15/19 documented as of this encounter
--- OUTSIDE RECORDS SUMMARY | 2024-08-24 11:32 | XMS_ITS | Encounter Summary ---
Author Organization [facility] Facility Care Team Providers Care Annual Giving Manager Name Role Phone Loco Linares MD Primary Care Provider [phone] Peewee Cornelius MD Unavailable [phone] Encounter Details Date Type Department Care Team (Latest Contact Info) Description 12/09/2016 Orders Only [facility] ProviderMadai MD [address] [place] [address] Social History Tobacco Use Types Packs/Day Years Used Date Smoking Tobacco: Never Assessed Sex and Gender Information Value Date Recorded Sex Assigned at Not on file Legal Sex Male 2:53 AM SILVER PLATER Gender Identity Not on file Sexual Orientation Not on file documented as of this encounter Plan of Treatment Not on file documented as of this encounter Procedures Procedure Name Priority Date/Time Associated Diagnosis Comments SCAN - LABS 12/13/2016 12:00 AM CDT documented in this encounter Results * SCAN - LABS (12/13/2016 12:00 AM CDT) Narrative 12/13/2016 12:00 AM CDT Ordered by an unspecified provider. Historical Provider Final Res ult documented in this encounter Visit Diagnoses Not on filedocumented in this encounter Care Teams Annual Giving Manager Relationship Specialty Start Date End Date Loco Linares MD PCP - General Family Medicine 12/06/18 Peewee Cornelius MD [address] [address] Jute Bag Cutting Machine Operator Cardiology 04/15/19 documented as of this encounter
--- OUTSIDE RECORDS SUMMARY | 2024-08-24 11:32 | XMS_ITS | Referral Summary ---
Author Organization [facility] Address [address] [place] [id number] Care Team Providers Care Assembler Skylights Name Role Phone Loco Linares MD Primary Care Provider [phone] Peewee Cornelius MD Unavailable [phone] Encounters Date Type Department Care Team Description 07/30/2024 Orders Only [facility] Cardiology [address] [place] [phone] Peewee Cornelius MD Ischemic cardiomyopathy (Primary Dx); ICD (implantable cardioverter-defibrill ator) in place; Sick sinus syndrome (CMS/HCC) (HCC) 07/30/2024 1:45 PM FAC ENGINEER Office Visit [address] [address] Peewee Cornelius MD Coronary artery disease involving coushatta coronary artery of cous[place]ta heart without angina pectoris (Primary Dx); Ischemic cardiomyopathy; ICD (implantable cardioverter-defibrill ator) in place; Mixed hyperlipidemia; Smoking 07/30/2024 1:15 PM FAC ENGINEER Ancillary Procedure [address] [address] ICD (implantable cardioverter-defibrill ator) in place; Ischemic cardiomyopathy from Last 3 Months Allergies No known active allergies Medications isosorbide [...] Diagnosed Date Coronary artery disease invo lving coushatta coronary artery of coushatta heart without angina pectoris 11/17/2020 ICD (implantable cardioverter-defibrillator) in place 12/11/2018 Assessment & Plan (09/15/2020 3:34 PM FAC ENGINEER): Check today shows normal function. Replacement device [...] 12/11/2018 Assessment & Plan (08/01/2020 11:44 AM FAC ENGINEER): Remotely ablated. No recurrence. No indication for [...] 02/20/2016 Assessment & Plan (08/01/2020 11:43 AM FAC ENGINEER): Will be symptomatic without device replacement. Histogram showed good rate response. Assessment & Plan (12/10/2019 2:13 PM CDT): Histogram showed good rate response. Cardiomyopathy 02/03/2016 Overview (04/16/2019): Last echo showed normal LV function. Repeat the echo done on the during atrial flutter showed no cardiomyopathy with the ejection fraction around the 25-30%. Assessment & Plan (09/15/2020 3:34 PM FAC ENGINEER): Class 1. Continue lisinopril Imdur Toprol spironolactone Assessment & Plan (08/01/2020 11:43 AM FAC ENGINEER): Improved. Continue Toprol and lisinopril. Assessment & Plan (12/10/2019 2:14 PM CDT): Continue Imdur lisinopril and Toprol and spironolactone. Pulmonary emboli 02/03/2016 Smoking 02/03/2016 Abscess of tonsil 07/19/2014 Resolved Problems Problem Noted Date Diagnosed Date Resolved Date Coronary artery disease of n ative artery of coushatta heart with stable angina pectoris 04/16/2019 11/17/2020 Assessment & Plan (09/15/2020 3:34 PM FAC ENGINEER): Continue aspirin Lipitor Toprol Assessment & Plan (12/10/2019 2:15 PM CDT): Continue aspirin and statin Dyslipidemia 02/03/2016 07/10/2021 Assessment & Plan (08/01/2020 11:44 AM FAC ENGINEER): Continue statin Social History Tobacco Use Types Packs/Day Years Used Date Smoking Tobacco: Every Day Smokeless Tobacco: Never Sex and Gender Information Value Date Recorded Sex Assigned at Not on file Legal Sex Male 2:53 AM FAC ENGINEER Gender Identity Not on file Sexual Orientation Not on file Last Filed Vital Signs Vital Sign Reading Time Taken Comments Blood Pressure 120/70 07/30/2024 2:25 PM FAC ENGINEER Pulse 85 07/30/2024 2:25 PM FAC ENGINEER Temperature 36.5 ??C (97.7 ??F) 01/08/2022 4:33 PM CD T Respiratory Rate - - Oxygen Saturation 96% 07/11/2023 1:31 PM FAC ENGINEER Inhaled Oxygen Concentration - - Weight 84.8 kg (187 lb) 07/30/2024 2:25 PM FAC ENGINEER Height 170.2 cm (5' 7 ) 07/30/2024 2:25 PM FAC ENGINEER Body Mass Index 29.29 07/30/2024 2:25 PM FAC ENGINEER Plan of Treatment Not on file Procedures Procedure Name Priority Date/Time Associated Diagnosis Comments COMPREHENSIVE METABOLIC PANEL Routine 07/17/2024 1:28 PM FAC ENGINEER Coronary artery disease involving [place] coronary artery of [place] heart without angina pectoris Mixed hyperlipidemia LIPID PANEL Routine 07/17/2024 1:28 PM FAC ENGINEER Coronary artery disease involving [place] coronary artery of cous[place] heart without angina pectoris Mixed hyperlipidemia from Last 3 Months Results * Lipid panel (07/17/2024 1:28 PM FAC ENGINEER) Cholesterol 109 100 - 199 mg/dL [facility] - 01 Triglycerides 86 0 - 149 mg/dL [facility] - 01 HDL Cholesterol 43 >39 mg/dL [facility] - 01 VLDL 17 5 - 40 mg/dL [facility] - 01 LDL, calculated 49 0 - 99 mg/dL [facility] - 01 Blood 07/17/2024 1:28 PM FAC ENGINEER 07/17/2024 Narrative [facility] - 07/18/2024 9:36 AM FAC ENGINEER Performed at: ??01 - [facility] [address] ??[id number] Fire Manager: Rene Arellano PhD, Phone: ??[phone] us Peewee Cornelius MD LAB BLOOD ORDERABLES Final Result [facility] - 01 * (ABNORMAL) Comprehensive metabolic panel (07/17/2024 1:28 PM FAC ENGINEER) Glucose 119(H) 70 - 99 mg/dL [facility] [...] [facility] - 01 Blood 07/17/2024 1:28 PM FAC ENGINEER 07/17/2024 Narrative [facility] - 07/18/2024 9:36 AM FAC ENGINEER Performed at: ??01 - [facility] [address] ??[id number] Fire Manager: eRne Arellano PhD, Phone: ??[phone] Specimen Comment: A courtesy copy of this report has been sent to [phone], [phone] Specimen Comment: [phone] us Peewee Cornelius MD LAB BLOOD ORDERABLES Final Result Performing Organization Address City/State/[facility] Co de Phone Number [facility] - 01 from Last 3 Months Insurance MEDICARE [employer] Care Teams Assembler Skylights Relationship Specialty Start Date End Date Loco Linares MD PCP - General Family Medicine 12/06/18 Peewee Cornelius MD [address] [facility] [place] [address] Operations Lieutenant Cardiology 04/15/19
--- OUTSIDE RECORDS SUMMARY | 2024-08-24 11:32 | XMS_ITS | Encounter Summary ---
Author Organization [facility] Facility Care Team Providers Care Payroll And Benefits Coordinator Name Role Phone Loco Linares MD Primary Care Provider [phone] Peewee Cornelius MD Unavailable [phone] Encounter Details Date Type Department Care Team (Latest Contact Info) Description 09/30/2015 Orders Only [facility] ProviderMadai MD [address] [place] [address] Social History Tobacco Use Types Packs/Day Years Used Date Smoking Tobacco: Never Assessed Sex and Gender Information Value Date Recorded Sex Assigned at Not on file Legal Sex Male 2:53 AM SEO COORDINATOR Gender Identity Not on file Sexual Orientation Not on file documented as of this encounter Plan of Treatment Not on file documented as of this encounter Procedures Procedure Name Priority Date/Time Associated Diagnosis Comments SCAN - LABS 02/03/2016 12:00 AM CDT documented in this encounter Results * SCAN - LABS (02/03/2016 12:00 AM CDT) Narrative 02/03/2016 12:00 AM CDT Ordered by an unspecified provider. Historical Provider Final Res ult documented in this encounter Visit Diagnoses Not on filedocumented in this encounter Care Teams Payroll And Benefits Coordinator Relationship Specialty Start Date End Date Loco Linares MD PCP - General Family Medicine 12/06/18 Peewee Cornelius MD [address] [facility] [place] [address] Plate Glass Grinder Cardiology 04/15/19 documented as of this encounter
--- OUTSIDE RECORDS SUMMARY | 2024-08-24 11:32 | XMS_ITS | Encounter Summary ---
Author Organization [facility] Facility Care Team Providers Care Window Trimmer Name Role Phone Loco Linares MD Primary Care Provider [phone] Peewee Cornelius MD Unavailable [phone] Encounter Details Date Type Department Care Team (Latest Contact Info) Description 02/17/2017 Orders Only [facility] ProviderMadai MD [address] [place] [address] Social History Tobacco Use Types Packs/Day Years Used Date Smoking Tobacco: Never Assessed Sex and Gender Information Value Date Recorded Sex Assigned at Not on file Legal Sex Male 2:53 AM INSURANCE COMMISSIONER Gender Identity Not on file Sexual Orientation Not on file documented as of this encounter Plan of Treatment Not on file documented as of this encounter Procedures Procedure Name Priority Date/Time Associated Diagnosis Comments SCAN - LABS 02/06/2017 12:00 AM CDT documented in this encounter Results * SCAN - LABS (02/06/2017 12:00 AM CDT) Narrative 02/06/2017 12:00 AM CDT Ordered by an unspecified provider. Historical Provider Final Res ult documented in this encounter Visit Diagnoses Not on filedocumented in this encounter Care Teams Window Trimmer Relationship Specialty Start Date End Date Loco Linares MD PCP - General Family Medicine 12/06/18 Peewee Cornelius MD [address] [facility] [place] [address] Environmental Technician Cardiology 04/15/19 documented as of this encounter
--- OUTSIDE RECORDS SUMMARY | 2024-08-24 11:32 | XMS_ITS | Encounter Summary ---
Author Organization [facility] Facility Care Team Providers Care E Commerce Web Developer Name Role Phone Loco Linares MD Primary Care Provider [phone] Peewee Cornelius MD Unavailable [phone] Encounter Details Date Type Department Care Team (Latest Contact Info) Description 04/09/2016 Orders Only [facility] ProviderMadai MD [address] [place] [address] Social History Tobacco Use Types Packs/Day Years Used Date Smoking Tobacco: Never Assessed Sex and Gender Information Value Date Recorded Sex Assigned at Not on file Legal Sex Male 2:53 AM INSIDE SALES COORDINATOR Gender Identity Not on file Sexual Orientation Not on file documented as of this encounter Plan of Treatment Not on file documented as of this encounter Procedures Procedure Name Priority Date/Time Associated Diagnosis Comments SCAN - LABS 04/10/2016 12:00 AM CDT documented in this encounter Results * SCAN - LABS (04/10/2016 12:00 AM CDT) Narrative 04/10/2016 12:00 AM CDT Ordered by an unspecified provider. Historical Provider Final Res ult documented in this encounter Visit Diagnoses Not on filedocumented in this encounter Care Teams E Commerce Web Developer Relationship Specialty Start Date End Date Loco Linares MD PCP - General Family Medicine 12/06/18 Peewee Cornelius MD [address] [place] [address] Dish Technician Cardiology 04/15/19 documented as of this encounter
--- OUTSIDE RECORDS SUMMARY | 2024-08-24 11:32 | XMS_ITS | Encounter Summary ---
Author Organization [facility] Facility Care Team Providers Care Conservation Science Officer Name Role Phone Loco Linares MD Primary Care Provider [phone] Peewee Cornelius MD Unavailable [phone] Encounter Details Date Type Department Care Team (Latest Contact Info) Description 10/02/2018 Orders Only [facility] Provider, MD Madai [address] [place] [address] Social History Tobacco Use Types Packs/Day Years Used Date Smoking Tobacco: Never Assessed Sex and Gender Information Value Date Recorded Sex Assigned at Not on file Legal Sex Male 2:53 AM CHARGE HISTOTECHNOLOGIST Gender Identity Not on file Sexual Orientation Not on file documented as of this encounter Plan of Treatment Not on file documented as of this encounter Procedures Procedure Name Priority Date/Time Associated Diagnosis Comments SCAN - LABS 10/03/2018 12:00 AM CHARGE HISTOTECHNOLOGIST documented in this encounter Results * SCAN - LABS (10/03/2018 12:00 AM CHARGE HISTOTECHNOLOGIST) Narrative 10/03/2018 12:00 AM CHARGE HISTOTECHNOLOGIST Ordered by an unspecified provider. Historical Provider Final Res ult documented in this encounter Visit Diagnoses Not on filedocumented in this encounter Care Teams Conservation Science Officer Relationship Specialty Start Date End Date Loco Linares MD PCP - General Family Medicine 12/06/18 Peewee Cornelius MD [address] [facility] [place] [address] Food Service Attendant Cardiology 04/15/19 documented as of this encounter
== END 2024-08-24 10:28 | disposition home or self-care (01) ==
PROVIDERS: PCP Family Medicine; Visit Provider Nurse Practitioner Family
DX: Z12.2 Encounter for screening for malignant neoplasm of respiratory organs (principal); Z87.891 Personal history of nicotine dependence; R91.8 Other nonspecific abnormal finding of lung field
CPT/HCPCS: 71271

== ENCOUNTER 2024-11-10 09:24 | Outpatient (CLI) | payer MEDICARE, SELFPAY ==
--- NOTE | ~2024-11-10 | CT_ITS ---
CT Scan of the Chest without Contrast: Clinical Indication: Nonspecific abnormal finding of lung field Technique: Contiguous sections were acquired throughout the chest without intravenous contrast. Dose reduction technique was used on this scan by utilizing automated exposure control and iterative recon struction technique. The dose-length product (DLP) was 219.64 mGy-cm. COMPARISON: 08/24/2024 Findings: There is no evidence of any significant mediastinal, hilar or axillary lymphadenopathy. Extensive cor onary artery calcifications are present. There is no evidence of pleural or pericardial effusion. Multiple scattered subcentimeter nodules and focal groundglass opacities are similar to prior exam, w ith upper lobe/upper lung zone predominance. Probable minimal emphysema. Images through the upper abdomen reveal no abnormalities. Impression: Scattered subcentimeter pulmonary nodules and groundglass opacities are overall similar to prior exam , most compatible with infectious/inflammatory process. Minimal emphysema. Reviewed, dictated and finalized at [facility]. Impression: Scattered subcentimeter pulmonary nodules and groundglass opacities are overall similar to prior exam, most compatible with infectious/inflammatory process. Minimal emphysema.
--- OUTSIDE RECORDS SUMMARY | 2024-11-10 09:59 | XMS_ITS | Encounter Summary ---
Author Organization [facility] Facility Care Team Providers Care Nutrition Consultant Name Role Phone Loco Linares MD Primary Care Provider [phone] Peewee Cornelius MD Unavailable [phone] Encounter Details Date Type Department Care Team (Latest Contact Info) Description 09/09/2018 Orders Only [facility] ProviderMadai MD [address] [place] [address] Social History Tobacco Use Types Packs/Day Years Used Date Smoking Tobacco: Never Assessed Sex and Gender Information Value Date Recorded Sex Assigned at Not on file Legal Sex Male 2:53 AM PACKING ATTENDANT Gender Identity Not on file Sexual Orientation Not on file documented as of this encounter Plan of Treatment Not on file documented as of this encounter Procedures Procedure Name Priority Date/Time Associated Diagnosis Comments CARDIOLOGY REPORT 09/09/2018 12: 00 AM PACKING ATTENDANT documented in this encounter Results * CARDIOLOGY REPORT (09/09/2018 12:00 AM PACKING ATTENDANT) Anatomical Region Laterality Modality Other Narrative 09/09/2018 12:00 AM PACKING ATTENDANT Ordered by an unspecified provider. Historical Provider [facility] CAR[facility] MEDRANO Final Result documented in this encounter Visit Diagnoses Not on filedocumented in this encounter Care Teams Nutrition Consultant Relationship Specialty Start Date End Date Loco Linares MD PCP - General Family Medicine 12/06/18 Peewee Cornelius MD [address] [facility] [place] [address] Lining Setter Cardiology 04/15/19 documented as of this encounter
--- OUTSIDE RECORDS SUMMARY | 2024-11-10 09:59 | XMS_ITS | Encounter Summary ---
Author Organization [facility] Facility Care Team Providers Care Anodizing Line Operator Name Role Phone Loco Linares MD Primary Care Provider [phone] Peewee Cornelius MD Unavailable [phone] Encounter Details Date Type Department Care Team (Latest Contact Info) Description 08/27/2016 Orders Only [facility] ProviderMadai MD [address] [place] [address] Social History Tobacco Use Types Packs/Day Years Used Date Smoking Tobacco: Never Assessed Sex and Gender Information Value Date Recorded Sex Assigned at Not on file Legal Sex Male 2:53 AM PRIMARY EDUCATION PROFESSOR Gender Identity Not on file Sexual Orientation Not on file documented as of this encounter Plan of Treatment Not on file documented as of this encounter Procedures Procedure Name Priority Date/Time Associated Diagnosis Comments CARDIOLOGY REPORT 08/28/2016 12: 00 AM PRIMARY EDUCATION PROFESSOR documented in this encounter Results * CARDIOLOGY REPORT (08/28/2016 12:00 AM PRIMARY EDUCATION PROFESSOR) Anatomical Region Laterality Modality Other Narrative 08/28/2016 12:00 AM PRIMARY EDUCATION PROFESSOR Ordered by an unspecified provider. Historical Provider [facility] CARMELO MEDRANO Final Result documented in this encounter Visit Diagnoses Not on filedocumented in this encounter Care Teams Anodizing Line Operator Relationship Specialty Start Date End Date Loco Linares MD PCP - General Family Medicine 12/06/18 Peewee Cornelius MD [address] [place] [address] Box Office Attendant Cardiology 04/15/19 documented as of this encounter
--- OUTSIDE RECORDS SUMMARY | 2024-11-10 09:59 | XMS_ITS | Encounter Summary ---
Author Organization [facility] Facility Care Team Providers Care Security Orderly Name Role Phone Loco Linares MD Primary Care Provider [phone] Peewee Cornelius MD Unavailable [phone] Encounter Details Date Type Department Care Team (Latest Contact Info) Description 05/07/2017 Orders Only [facility] ProviderMadai MD [address] [place] [address] Social History Tobacco Use Types Packs/Day Years Used Date Smoking Tobacco: Never Assessed Sex and Gender Information Value Date Recorded Sex Assigned at Not on file Legal Sex Male 2:53 AM PEDICURIST Gender Identity Not on file Sexual Orientation [...] on filedocumented in this encounter Care Teams Security Orderly Relationship Specialty Start Date End Date Loco Linares MD PCP - General Family Medicine 12/06/18 Peewee Cornelius MD [address] [place] [address] [address] Round Boner Cardiology 04/15/19 documented as of this encounter
--- OUTSIDE RECORDS SUMMARY | 2024-11-10 09:59 | XMS_ITS | Encounter Summary ---
Author Organization [facility] Facility Care Team Providers Care Chopping Machine Operator Name Role Phone Loco Linares MD Primary Care Provider [phone] Peewee Cornelius MD Unavailable [phone] Encounter Details Date Type Department Care Team (Latest Contact Info) Description 11/26/2016 Orders Only [facility] ProviderMadai MD [address] [place] [address] Social History Tobacco Use Types Packs/Day Years Used Date Smoking Tobacco: Never Assessed Sex and Gender Information Value Date Recorded Sex Assigned at Not on file Legal Sex Male 2:53 AM CIVIL PROJECT ENGINEER Gender Identity Not on file Sexual [...] on filedocumented in this encounter Care Teams Chopping Machine Operator Relationship Specialty Start Date End Date Loco Linares MD PCP - General Family Medicine 12/06/18 Peewee Cornelius MD [address] [place] [address] Chief Medical Director Cardiology 04/15/19 documented as of this encounter
--- OUTSIDE RECORDS SUMMARY | 2024-11-10 09:59 | XMS_ITS | Encounter Summary ---
Author Organization [facility] Facility Care Team Providers Care Collateral Clerk Name Role Phone Loco Linares MD Primary Care Provider [phone] Peewee Cornelius MD Unavailable [phone] Encounter Details Date Type Department Care Team (Latest Contact Info) Description 09/07/2013 Orders Only [facility]IN[facility] ProviderMadai MD [address] [place] [address] Social History Tobacco Use Types Packs/Day Years Used Date Smoking Tobacco: Never Assessed Sex and Gender Information Value Date Recorded Sex Assigned at Not on file Legal Sex Male 2:53 AM PLANT SCIENTIST Gender Identity Not on file Sexual Orientation [...] on filedocumented in this encounter Care Teams Collateral Clerk Relationship Specialty Start Date End Date Loco Linares MD PCP - General Family Medicine 12/06/18 Peewee Cornelius MD [address] [facility] [place] [address] Line Locator Cardiology 04/15/19 documented as of this encounter
--- OUTSIDE RECORDS SUMMARY | 2024-11-10 09:59 | XMS_ITS | Encounter Summary ---
Author Organization [facility] Facility Care Team Providers Care Mid Level Clinician Name Role Phone Loco Linares MD Primary Care Provider [phone] Peewee Cornelius MD Unavailable [phone] Encounter Details Date Type Department Care Team (Latest Contact Info) Description 02/20/2016 Orders Only [facility] ProviderMadai MD [address] [place] [address] Social History Tobacco Use Types Packs/Day Years Used Date Smoking Tobacco: Never Assessed Sex and Gender Information Value Date Recorded Sex Assigned at Not on file Legal Sex Male 2:53 AM SHIP CARPENTER Gender Identity Not on file Sexual Orientation [...] on filedocumented in this encounter Care Teams Mid Level Clinician Relationship Specialty Start Date End Date Loco Linares MD PCP - General Family Medicine 12/06/18 Peewee Cornelius MD [address] [facility] [place] [address] Termite Renewal Inspector Cardiology 04/15/19 documented as of this encounter
--- OUTSIDE RECORDS SUMMARY | 2024-11-10 09:59 | XMS_ITS | Encounter Summary ---
Author Organization [facility] Facility Care Team Providers Care Bike Mechanic Name Role Phone Loco Linares MD Primary Care Provider [phone] Peewee Cornelius MD Unavailable [phone] Encounter Details Date Type Department Care Team (Latest Contact Info) Description 03/13/2018 Orders Only [facility]IN[facility] ProviderMadai MD [address] [place] [address] Social History Tobacco Use Types Packs/Day Years Used Date Smoking Tobacco: Never Assessed Sex and Gender Information Value Date Recorded Sex Assigned at Not on file Legal Sex Male 2:53 AM FOIL CUTTER Gender Identity Not on file Sexual Orientation [...] on filedocumented in this encounter Care Teams Bike Mechanic Relationship Specialty Start Date End Date Loco Linares MD PCP - General Family Medicine 12/06/18 Peewee Cornelius MD [address] [facility] [place] [address] Molder Setter Cardiology 04/15/19 documented as of this encounter
--- OUTSIDE RECORDS SUMMARY | 2024-11-10 09:59 | XMS_ITS | Encounter Summary ---
Author Organization [facility] Facility Care Team Providers Care Early Childhood Teacher Name Role Phone Loco Linares MD Primary Care Provider [phone] Peewee Cornelius MD Unavailable [phone] Encounter Details Date Type Department Care Team (Latest Contact Info) Description 04/09/2016 Orders Only [facility] CLINCON[facility] ProviderMadai MD [address] [place] [address] Social History Tobacco Use Types Packs/Day Years Used Date Smoking Tobacco: Never Assessed Sex and Gender Information Value Date Recorded Sex Assigned at Not on file Legal Sex Male 2:53 AM LOSS PREVENTION RESEARCH ENGINEER Gender Identity Not on file Sexual [...] on filedocumented in this encounter Care Teams Early Childhood Teacher Relationship Specialty Start Date End Date Loco Linares MD PCP - General Family Medicine 12/06/18 Peewee Cornelius MD [address] [facility] [place] [address] Web Designer Developer Cardiology 04/15/19 documented as of this encounter
--- OUTSIDE RECORDS SUMMARY | 2024-11-10 09:59 | XMS_ITS | Encounter Summary ---
Author Organization [facility] Facility Care Team Providers Care Asset Protection Greeter Name Role Phone Loco Linares MD Primary Care Provider [phone] Peewee Cornelius MD Unavailable [phone] Encounter Details Date Type Department Care Team (Latest Contact Info) Description 09/30/2015 Orders Only [facility]INCON[facility] ProviderMadai MD [address] [place] [address] Social History Tobacco Use Types Packs/Day [...] on filedocumented in this encounter Care Teams Asset Protection Greeter Relationship Specialty Start Date End Date Loco Linares MD PCP - General Family Medicine 12/06/18 Peewee Cornelius MD [address] [place] [address] Animal Husbandry Worker Cardiology 04/15/19 documented as of this encounter
--- OUTSIDE RECORDS SUMMARY | 2024-11-10 09:59 | XMS_ITS | Encounter Summary ---
Author Organization [facility] Facility Care Team Providers Care Production Internship Name Role Phone Loco Linares MD Primary Care Provider [phone] Peewee Cornelius MD Unavailable [phone] Encounter Details Date Type Department Care Team (Latest Contact Info) Description 03/11/2017 Orders Only [facility] CLINCONV ProviderMadai MD [address] [place] [address] Social History Tobacco Use Types Packs/Day Years Used Date Smoking Tobacco: Never Assessed Sex and Gender Information Value Date Recorded Sex Assigned at Not on file Legal Sex Male 2:53 AM HSE COORDINATOR Gender Identity Not on file Sexual [...] on filedocumented in this encounter Care Teams Production Internship Relationship Specialty Start Date End Date Loco Linares MD PCP - General Family Medicine 12/06/18 Peewee Cornelius MD [address] [place] [address] Automotive Upholsterer Cardiology 04/15/19 documented as of this encounter
--- OUTSIDE RECORDS SUMMARY | 2024-11-10 09:59 | XMS_ITS | CONTINUITY OF CARE DOCUMENT ---
Author Name addis heribertoaida Address Unknown Organization [facility] Address [address] [place] [address] [address] [place] [address] Phone [phone] Care Team Providers Care Sales Operations Manager Name Role Phone Mynor VELASCO, To Allen Unavailable [phone] CINDA ORTIZ MD Unavailable CINDA ORTIZ MD Unavailable [phone] INSURANCE PROVIDERS Payer name Policy type / Coverage type Vitaly red green party ID [id number] PPO SELECT Other [id number]
--- OUTSIDE RECORDS SUMMARY | 2024-11-10 09:59 | XMS_ITS | Encounter Summary ---
Author Organization [facility] Facility Care Team Providers Care Traffic Analysis Technician Name Role Phone Loco Linares MD Primary Care Provider [phone] Peewee Cornelius MD Unavailable [phone] Encounter Details Date Type Department Care Team (Latest Contact Info) Description 10/02/2018 Orders Only [facility] CLINCONV Provider, MD Madai [address] [place] [address] Social History Tobacco Use Types Packs/Day Years Used Date Smoking Tobacco: Never Assessed Sex and Gender Information Value Date Recorded Sex Assigned at Not on file Legal Sex Male 2:53 AM BEAN PICKER MACHINE OPERATOR Gender Identity Not on file Sexual Orientation Not on file documented as of this encounter Plan of Treatment Not on file documented as of this encounter Procedures Procedure Name Priority Date/Time Associated Diagnosis Comments SCAN - LABS 10/03/2018 12:00 AM BEAN PICKER MACHINE OPERATOR documented in this encounter Results * SCAN - LABS (10/03/2018 12:00 AM BEAN PICKER MACHINE OPERATOR) Narrative 10/03/2018 12:00 AM BEAN PICKER MACHINE OPERATOR Ordered by an unspecified provider. Historical Provider Final Res ult documented in this encounter Visit Diagnoses Not on filedocumented in this encounter Care Teams Traffic Analysis Technician Relationship Specialty Start Date End Date Loco Linares MD PCP - General Family Medicine 12/06/18 Peewee Cornelius MD [address] [place] [address] Tile Mason Cardiology 04/15/19 documented as of this encounter
--- OUTSIDE RECORDS SUMMARY | 2024-11-10 09:59 | XMS_ITS | Encounter Summary ---
Author Organization [facility] Facility Care Team Providers Care Jr. Systems Administrator Name Role Phone Loco Linares MD Primary Care Provider [phone] Peewee Cornelius MD Unavailable [phone] Encounter Details Date Type Department Care Team (Latest Contact Info) Description 05/14/2017 Orders Only [facility] CLINCONV ProviderMadai MD [address] [place] [address] Social History Tobacco Use Types Packs/Day Years Used Date Smoking Tobacco: Never Assessed Sex and Gender Information Value Date Recorded Sex Assigned at Not on file Legal Sex Male 2:53 AM PROGRAMMING INTERNSHIP Gender Identity Not on file Sexual Orientation [...] on filedocumented in this encounter Care Teams Jr. Systems Administrator Relationship Specialty Start Date End Date Loco Linares MD PCP - General Family Medicine 12/06/18 Peewee Cornelius MD [address] [place] [address] Blacktop Paver Operator Cardiology 04/15/19 documented as of this encounter
--- OUTSIDE RECORDS SUMMARY | 2024-11-10 09:59 | XMS_ITS | Encounter Summary ---
Author Organization [facility] Facility Care Team Providers Care Pbx Mechanic Name Role Phone Loco Linares MD Primary Care Provider [phone] Peewee Cornelius MD Unavailable [phone] Encounter Details Date Type Department Care Team (Latest Contact Info) Description 02/17/2017 Orders Only [facility] CLINCONV ProviderMadai MD [address] [place] [address] Social History Tobacco Use Types Packs/Day Years Used Date Smoking Tobacco: Never Assessed Sex and Gender Information Value Date Recorded Sex Assigned at Not on file Legal Sex Male 2:53 AM TAX ANALYST Gender Identity Not on file Sexual Orientation [...] on filedocumented in this encounter Care Teams Pbx Mechanic Relationship Specialty Start Date End Date Loco Linares MD PCP - General Family Medicine 12/06/18 Peewee Cornelius MD [address] [place] [address] Correspondence Specialist Cardiology 04/15/19 documented as of this encounter
--- OUTSIDE RECORDS SUMMARY | 2024-11-10 09:59 | XMS_ITS | Encounter Summary ---
Author Organization [facility] Facility Care Team Providers Care Vocational Evaluator Name Role Phone Loco Linares MD Primary Care Provider [phone] Peewee Cornelius MD Unavailable [phone] Encounter Details Date Type Department Care Team (Latest Contact Info) Description 12/09/2016 Orders Only [facility] CLINCONV ProviderMadai MD [address] [place] [address] Social History Tobacco Use Types Packs/Day Years Used Date Smoking Tobacco: Never Assessed Sex and Gender Information Value Date Recorded Sex Assigned at Not on file Legal Sex Male 2:53 AM MACHINERY ERECTOR Gender Identity Not on file Sexual Orientation [...] on filedocumented in this encounter Care Teams Vocational Evaluator Relationship Specialty Start Date End Date Loco Linares MD PCP - General Family Medicine 12/06/18 Peewee Cornelius MD [address] [place] [address] Crop Farmers Cardiology 04/15/19 documented as of this encounter
--- OUTSIDE RECORDS SUMMARY | 2024-11-10 09:59 | XMS_ITS | Encounter Summary ---
Author Organization [facility] Facility Care Team Providers Care Desizing Machine Offbearer Name Role Phone Loco Linares MD Primary Care Provider [phone] Peewee Cornelius MD Unavailable [phone] Encounter Details Date Type Department Care Team (Latest Contact Info) Description 07/11/2017 Orders Only [facility] CLINCONV ProviderMadai MD [address] [place] [address] Social History Tobacco Use Types Packs/Day Years Used Date Smoking Tobacco: Never Assessed Sex and Gender Information Value Date Recorded Sex Assigned at Not on file Legal Sex Male 2:53 AM FLYING TEACHER Gender Identity Not on file Sexual Orientation Not on file documented as of this encounter Plan of Treatment Not on file documented as of this encounter Procedures Procedure Name Priority Date/Time Associated Diagnosis Comments CARDIOLOGY REPORT 07/11/2017 12: 00 AM FLYING TEACHER documented in this encounter Results * CARDIOLOGY REPORT (07/11/2017 12:00 AM FLYING TEACHER) Anatomical Region Laterality Modality Other Narrative 07/11/2017 12:00 AM FLYING TEACHER Ordered by an unspecified provider. Historical Provider [facility] CARMELO MEDRANO Final Result documented in this encounter Visit Diagnoses Not on filedocumented in this encounter Care Teams Desizing Machine Offbearer Relationship Specialty Start Date End Date Loco Linares MD PCP - General Family Medicine 12/06/18 Peewee Cornelius MD [address] [place] [place] [address] Jet Aircraft Servicer Cardiology 04/15/19 documented as of this encounter
--- OUTSIDE RECORDS SUMMARY | 2024-11-10 09:59 | XMS_ITS | Clinical Summary ---
Author Organization [facility] Address [address] [place] [address] Care Team Providers Care Speech And Language Assistant Name Role Phone Loco Linares MD Primary Care Provider [phone] Peewee Cornelius MD Unavailable [phone] Allergies No known active allergies Medications isosorbide [...] tablet (40 mg total) by mouth daily 0 Active metFORMIN XR (GLUCOPHAGE XR) 500 mg 24 hr tablet Take 4 tablets (2,000 mg total) by mouth daily 0 Active lisinopriL (PRINIVIL,ZESTR IL) 2.5 mg tablet Take 1 tablet (2.5 mg total) by mouth daily 2 Active glipiZIDE (GLUCOTROL) 5 mg tablet Take 1 tablet (5 mg total) by mouth every morning 2 Active Mounjaro 2.5 mg/0.5 mL pen injector INJECT 0.5 ML UNDER THE SKIN ONCE A WEEK ON THE SAME DAY. 3 Active atorvastatin (LIPITOR) 80 mg tablet TAKE 1 TABLET BY MOUTH EVERY DAY 90 tablet 1 5 Active atorvastatin (LIPITOR) 80 mg tablet TAKE 1 TABLET BY MOUTH EVERY DAY 90 tablet 1 4 025 Discontinued Active Problems Problem Noted Date Diagnosed Date Coronary artery disease invo lving upper [place] coronary artery of [place] heart without angina pectoris 11/17/2020 ICD (implantable cardioverter-defibrillator) in place 12/11/2018 Assessment & Plan (09/15/2020 3:34 PM BRAZER PRODUCTION LINE): Check today shows normal function. Replacement device [...] function. No arrhythmias. Battery good Atrial flutter 12/11/2018 Assessment & Plan (08/01/2020 11:44 AM BRAZER PRODUCTION LINE): Remotely ablated. No recurrence. No indication for [...] No evidence of ischemia. Sick sinus syndrome 02/20/2016 Assessment & Plan (08/01/2020 11:43 AM BRAZER PRODUCTION LINE): Will be symptomatic without device replacement. Histogram showed good rate response. Assessment & Plan (12/10/2019 2:13 PM CDT): Histogram showed good rate response. Cardiomyopathy 02/03/2016 Overview (04/16/2019): Last echo showed normal LV function. Repeat the echo done on the th during atrial flutter showed no cardiomyopathy with the ejection fraction around the 25-30%. Assessment & Plan (09/15/2020 3:34 PM BRAZER PRODUCTION LINE): Class 1. Continue lisinopril Imdur Toprol spironolactone Assessment & Plan (08/01/2020 11:43 AM BRAZER PRODUCTION LINE): Improved. Continue Toprol and lisinopril. Assessment & Plan (12/10/2019 2:14 PM CDT): Continue Imdur lisinopril and Toprol and spironolactone. Pulmonary emboli 02/03/2016 Smoking 02/03/2016 Abscess of tonsil 07/19/2014 Resolved Problems Problem Noted Date Diagnosed Date Resolved Date Coronary artery disease of n ative artery of [place] heart with stable angina pectoris 04/16/2019 11/17/2020 Assessment & Plan (09/15/2020 3:34 PM BRAZER PRODUCTION LINE): Continue aspirin Lipitor Toprol Assessment & Plan (12/10/2019 2:15 PM CDT): Continue aspirin and statin Dyslipidemia 02/03/2016 07/10/2021 Assessment & Plan (08/01/2020 11:44 AM BRAZER PRODUCTION LINE): Continue statin Encounters Date Type Department Care Team Description 11/02/2024 7:00 AM CDT Ancillary Procedure [facility] Cardiology [address] [place] [address] Ischemic cardiomyopathy; ICD (implantable cardioverter-defibril lator) in place; Sick sinus syndrome (HCC) from Last 3 Months Surgical History Surgery Date Site/Laterality Comments ABLATION Medical History Medical History Date Comments CAD (coronary artery disease) Cardiomyopathy (HCC) A-fib (HCC) Sleep apnea Dyslipidemia Pulmonary emboli (HCC) [...] on file Legal Sex Male 2:53 AM BRAZER PRODUCTION LINE Gender Identity Not on file Sexual Orientation Not on file Obstetrics History Last Filed Vital Signs Vital Sign Reading Time Taken Comments Blood Pressure 120/70 07/30/2024 2:25 PM BRAZER PRODUCTION LINE Pulse 85 07/30/2024 2:25 PM BRAZER PRODUCTION LINE Temperature 36.5 C (97.7 F) 01/08/2022 4:33 PM CDT Respiratory Rate - - Oxygen Saturation 96% 07/11/2023 1:31 PM BRAZER PRODUCTION LINE Inhaled Oxygen Concentration - - Weight 84.8 kg (187 lb) 07/30/2024 2:25 PM BRAZER PRODUCTION LINE Height 170.2 cm (5' 7 ) 07/30/2024 2:25 PM BRAZER PRODUCTION LINE Body Mass Index 29.29 07/30/2024 2:25 PM BRAZER PRODUCTION LINE Plan of Treatment Health Maintenance Due Date Last Done Comments Colon Cancer Screening-Colonoscopy 1958 Depression Screening 1958 Fall Risk Assessment 1958 Hepatitis C Screening 1958 Prostate Cancer Screening-PSA 1958 DTaP/Tdap/Td Vaccine (1 - Tdap) 1969 Hepatitis B Screening 1976 Pneumococcal vaccine 65+ (1 of 2 - PCV) 1977 Zoster Vaccine (1 of 2) 2008 Abdominal Aortic Aneurysm (AAA) Screen 2023 Well Visit 65+ 2023 Covid-19 Vaccine (2 - season) 03/29/202405/2021 Influenza Vaccine (Season Ended) 2025 Insurance Care Teams Speech And Language Assistant Relationship Specialty Start Date End Date Loco Linares MD PCP - General Family Medicine 12/06/18 Peewee Cornelius MD [address] [place] [address] Bundle Sorter Cardiology 04/15/19
--- OUTSIDE RECORDS SUMMARY | 2024-11-10 09:59 | XMS_ITS | Encounter Summary ---
Author Organization [facility] Facility Care Team Providers Care High School Coordinator Name Role Phone Loco Linares MD Primary Care Provider [phone] Peewee Cornelius MD Unavailable [phone] Encounter Details Date Type Department Care Team (Latest Contact Info) Description 06/16/2016 Orders Only [facility]G CLINCONV Provider, MD Madai [address] [place] [address] Social History Tobacco Use Types Packs/Day Years Used Date Smoking Tobacco: Never Assessed Sex and Gender Information Value Date Recorded Sex Assigned at Not on file Legal Sex Male 2:53 AM TOOL GRINDING TECHNICIAN Gender Identity Not on file Sexual Orientation Not on file documented as of this encounter Plan of Treatment Not on file documented as of this encounter Procedures Procedure Name Priority Date/Time Associated Diagnosis Comments SCAN - LABS 06/05/2016 12:00 AM TOOL GRINDING TECHNICIAN documented in this encounter Results * SCAN - LABS (06/05/2016 12:00 AM TOOL GRINDING TECHNICIAN) Narrative 06/05/2016 12:00 AM TOOL GRINDING TECHNICIAN Ordered by an unspecified provider. Historical Provider Final Res ult documented in this encounter Visit Diagnoses Not on filedocumented in this encounter Care Teams High School Coordinator Relationship Specialty Start Date End Date Loco Linares MD PCP - General Family Medicine 12/06/18 Peewee Cornelius MD [address] [place] [address] Car Scrubber Cardiology 04/15/19 documented as of this encounter
--- OUTSIDE RECORDS SUMMARY | 2024-11-10 09:59 | XMS_ITS | Encounter Summary ---
Author Organization [facility] Facility Care Team Providers Care Community Service Organization Director Name Role Phone Loco Linares MD Primary Care Provider [phone] Peewee Cornelius MD Unavailable Encounter Details Date Type Department Care Team (Latest Contact Info) Description 05/06/2017 Orders Only [facility]G CLINCONV ProviderMadai MD [address] [place] [address] Social History Tobacco Use Types Packs/Day Years Used Date Smoking Tobacco: Never Assessed Sex and Gender Information Value Date Recorded Sex Assigned at Not on file Legal Sex Male 2:53 AM ASPHALT DAUBER Gender Identity Not on file Sexual Orientation [...] on filedocumented in this encounter Care Teams Community Service Organization Director Relationship Specialty Start Date End Date Loco Linares MD PCP - General Family Medicine 12/06/18 Peewee Cornelius MD [address] [place] [address] [address] Medical Lab Tech Instructor Cardiology 04/15/19 documented as of this encounter
--- OUTSIDE RECORDS SUMMARY | 2024-11-10 09:59 | XMS_ITS | Encounter Summary ---
Author Organization [facility] Facility Care Team Providers Care Housing Manager Name Role Phone Loco Linares MD Primary Care Provider [phone] Peewee Cornelius MD Unavailable [phone] Encounter Details Date Type Department Care Team (Latest Contact Info) Description 06/09/2018 Orders Only [facility] CLINCONV ProviderMadai MD [address] [place] [address] Social History Tobacco Use Types Packs/Day Years Used Date Smoking Tobacco: Never Assessed Sex and Gender Information Value Date Recorded Sex Assigned at Not on file Legal Sex Male 2:53 AM CERTIFIED CYTOTECHNOLOGIST Gender Identity Not on file Sexual Orientation Not on file documented as of this encounter Plan of Treatment Not on file documented as of this encounter Procedures Procedure Name Priority Date/Time Associated Diagnosis Comments CARDIOLOGY REPORT 06/09/2018 12: 00 AM CERTIFIED CYTOTECHNOLOGIST documented in this encounter Results * CARDIOLOGY REPORT (06/09/2018 12:00 AM CERTIFIED CYTOTECHNOLOGIST) Anatomical Region Laterality Modality Other Narrative 06/09/2018 12:00 AM CERTIFIED CYTOTECHNOLOGIST Ordered by an unspecified provider. Historical Provider [facility] CARMELO MEDRANO Final Result documented in this encounter Visit Diagnoses Not on filedocumented in this encounter Care Teams Housing Manager Relationship Specialty Start Date End Date Loco Linares MD PCP - General Family Medicine 12/06/18 Peewee Cornelius MD [address] [place] [address] Adjunct Teacher Cardiology 04/15/19 documented as of this encounter
--- OUTSIDE RECORDS SUMMARY | 2024-11-10 09:59 | XMS_ITS | Encounter Summary ---
Author Organization [facility] Facility Care Team Providers Care Blueprint Assembler Name Role Phone Loco Linares MD Primary Care Provider [phone] Peewee Cornelius MD Unavailable [phone] Encounter Details Date Type Department Care Team (Latest Contact Info) Description 12/09/2017 Orders Only MMG CLINCONV ProviderMadai MD [address] [place] [address] Social History Tobacco Use Types Packs/Day Years Used Date Smoking Tobacco: Never Assessed Sex and Gender Information Value Date Recorded Sex Assigned at Not on file Legal Sex Male 2:53 AM LIVESTOCK JUDGING COACH Gender Identity Not on file Sexual Orientation [...] on filedocumented in this encounter Care Teams Blueprint Assembler Relationship Specialty Start Date End Date Loco Linares MD PCP - General Family Medicine 12/06/18 Peewee Cornelius MD [address] [place] [address] Dietetics Teacher Cardiology 04/15/19 documented as of this encounter
--- OUTSIDE RECORDS SUMMARY | 2024-11-10 09:59 | XMS_ITS | Referral Summary ---
Author Organization [facility] Address [address] [place] [address] Care Team Providers Care Recreation Attendant Supervisor Name Role Phone Loco Linares MD Primary Care Provider [phone] Peewee Cornelius MD Unavailable [phone] Encounters Date Type Department Care Team Description 11/02/2024 7:00 AM CDT Ancillary Procedure [facility] Cardiology [address] [place] [address] Ischemic cardiomyopathy; ICD (implantable cardioverter-defibril lator) in place; Sick sinus syndrome (HCC) from Last 3 Months Allergies No known [...] Diagnosed Date Coronary artery disease invo lving koi coronary artery of koi heart without angina pectoris 11/17/2020 ICD (implantable cardioverter-defibrillator) in place 12/11/2018 Assessment & Plan (09/15/2020 3:34 PM LEARNING AND DEVELOPMENT ANALYST): Check today shows normal function. Replacement device [...] 12/11/2018 Assessment & Plan (08/01/2020 11:44 AM LEARNING AND DEVELOPMENT ANALYST): Remotely ablated. No recurrence. No indication for [...] 02/20/2016 Assessment & Plan (08/01/2020 11:43 AM LEARNING AND DEVELOPMENT ANALYST): Will be symptomatic without device replacement. Histogram showed good rate response. Assessment & Plan (12/10/2019 2:13 PM CDT): Histogram showed good rate response. Cardiomyopathy 02/03/2016 Overview (04/16/2019): Last echo showed normal LV function. Repeat the echo done on the th during atrial flutter showed no cardiomyopathy with the ejection fraction around the 25-30%. Assessment & Plan (09/15/2020 3:34 PM LEARNING AND DEVELOPMENT ANALYST): Class 1. Continue lisinopril Imdur Toprol spironolactone Assessment & Plan (08/01/2020 11:43 AM LEARNING AND DEVELOPMENT ANALYST): Improved. Continue Toprol and lisinopril. Assessment & Plan (12/10/2019 2:14 PM CDT): Continue Imdur lisinopril and Toprol and spironolactone. Pulmonary emboli 02/03/2016 Smoking 02/03/2016 Abscess of tonsil 07/19/2014 Resolved Problems Problem Noted Date Diagnosed Date Resolved Date Coronary artery disease of n ative artery of koi heart with stable angina pectoris 04/16/2019 11/17/2020 Assessment & Plan (09/15/2020 3:34 PM LEARNING AND DEVELOPMENT ANALYST): Continue aspirin Lipitor Toprol Assessment & Plan (12/10/2019 2:15 PM CDT): Continue aspirin and statin Dyslipidemia 02/03/2016 07/10/2021 Assessment & Plan (08/01/2020 11:44 AM LEARNING AND DEVELOPMENT ANALYST): Continue statin Social History Tobacco Use Types Packs/Day Years Used Date Smoking Tobacco: Every Day Smokeless Tobacco: Never Sex and Gender Information Value Date Recorded Sex Assigned at Not on file Legal Sex Male 2:53 AM LEARNING AND DEVELOPMENT ANALYST Gender Identity Not on file Sexual Orientation Not on file Last Filed Vital Signs Vital Sign Reading Time Taken Comments Blood Pressure 120/70 07/30/2024 2:25 PM LEARNING AND DEVELOPMENT ANALYST Pulse 85 07/30/2024 2:25 PM LEARNING AND DEVELOPMENT ANALYST Temperature 36.5 C (97.7 F) 01/08/2022 4:33 PM CDT Respiratory Rate - - Oxygen Saturation 96% 07/11/2023 1:31 PM LEARNING AND DEVELOPMENT ANALYST Inhaled Oxygen Concentration - - Weight 84.8 kg (187 lb) 07/30/2024 2:25 PM LEARNING AND DEVELOPMENT ANALYST Height 170.2 cm (5' 7 ) 07/30/2024 2:25 PM LEARNING AND DEVELOPMENT ANALYST Body Mass Index 29.29 07/30/2024 2:25 PM LEARNING AND DEVELOPMENT ANALYST Plan of Treatment Not on file Insurance [facility] [employer] Care Teams Recreation Attendant Supervisor Relationship Specialty Start Date End Date Loco Linares MD PCP - General Family Medicine 12/06/18 Peewee Cornelius MD [address] [place] [address] Audiovisual Technician Cardiology 04/15/19
== END 2024-11-10 09:25 | disposition home or self-care (01) ==
PROVIDERS: PCP Family Medicine; Visit Provider Nurse Practitioner Family
DX: R91.8 Other nonspecific abnormal finding of lung field (principal)
CPT/HCPCS: 71250

== ENCOUNTER 2025-05-13 16:05 | Outpatient (CLI) | payer MEDICARE, SELFPAY ==
--- NOTE | ~2025-05-13 | CT_ITS ---
CT diagnostic chest wo con HISTORY:R91.8 - Other nonspecific abnormal finding of lung field COMPARISON: 01/06/2020. TECHNIQUE: Axial images of the chest were obtained without infusion of intravenous contrast. Dose optimization technique was utilized. FINDINGS: The examination demonstrates no pulmonary nodules, infiltrates and/or effusions. There are mild centrilobular emphysema. Cardiac size and mediastinal configuration are normal in appearance. No hilar or mediastinal lymphadenopathy is seen. The thoracic aorta is normal in caliber. Osseous structures are intact. IMPRESSION: No acute cardiopulmonary process. All CT scans at this facility are performed using low dose modulation techniques as appropriate to perform exam including the following: automated exposure control; use of iterative reconstruction technique; adjustment of the mA and/or kV according to patient size (this includes techniques or standardized protocols for targeted exams where dose is matched to indication/reason for exam). Reviewed, dictated and finalized at location S. IMPRESSION: No acute cardiopulmonary process. All CT scans at this facility are performed using low dose modulation techniqu es as appropriate to perform exam including the following: automated exposure c ontrol; use of iterative reconstruction technique; adjustment of the mA and/or kV according to patient size (this includes techniques or standardized protocol s for targeted exams where dose is matched to indication/reason for exam).
--- OUTSIDE RECORDS SUMMARY | 2025-05-13 17:49 | XMS_ITS | Encounter Summary ---
Author Organization [facility] Facility Care Team Providers Care Descriptive Catalog Librarian Name Role Phone Loco Linares MD Primary Care Provider +1 [phone] Peewee Cornelius MD Unavailable [phone] Encounter Details Date Type Department Care Team (Latest Contact Info) Description 09/09/2018 Orders Only [facility] CLINCONV ProviderMadai MD [address] [place] [address] Social History Tobacco Use Types Packs/Day Years Used Date Smoking Tobacco: Never Assessed Sex and Gender Information Value Date Recorded Sex Assigned at Not on file Legal Sex Male 2:53 AM POTATO GRADER Gender Identity Not on file Sexual Orientation Not on file documented as of this encounter Plan of Treatment Not on file documented as of this encounter Procedures Procedure Name Priority Date/Time Associated Diagnosis Comments CARDIOLOGY REPORT 09/09/2018 12: 00 AM POTATO GRADER documented in this encounter Results * CARDIOLOGY REPORT (09/09/2018 12:00 AM POTATO GRADER) Anatomical Region Laterality Modality Other Narrative 09/09/2018 12:00 AM POTATO GRADER Ordered by an unspecified provider. Historical Provider [facility] CARDIAC SERVICES CARMELO MEDRANO Final Result documented in this encounter Visit Diagnoses Not on filedocumented in this encounter Care Teams Descriptive Catalog Librarian Relationship Specialty Start Date End Date Loco Linares MD PCP - General Family Medicine 12/06/18 Peewee Cornelius MD [address] [place] [address] Air Conditioning Technician Cardiology 04/15/19 documented as of this encounter
--- OUTSIDE RECORDS SUMMARY | 2025-05-13 17:49 | XMS_ITS | Encounter Summary ---
Author Organization [facility] Facility Care Team Providers Care Scientific Systems Analyst Name Role Phone Loco Linares MD Primary Care Provider +1 [phone] Peewee Cornelius MD Unavailable [phone] Encounter Details Date Type Department Care Team (Latest Contact Info) Description 03/13/2018 Orders Only [facility] CLINCONV ProviderMadai MD [address] [place] [address] Social History Tobacco Use Types Packs/Day Years Used Date Smoking Tobacco: Never Assessed Sex and Gender Information Value Date Recorded Sex Assigned at Not on file Legal Sex Male 2:53 AM SENIOR WEB APPLICATIONS DEVELOPER Gender Identity Not on file Sexual Orientation [...] on filedocumented in this encounter Care Teams Scientific Systems Analyst Relationship Specialty Start Date End Date Loco Linares MD PCP - General Family Medicine 12/06/18 Peewee Cornelius MD [address] [place] [address] Mutuel Machine Operator Cardiology 04/15/19 documented as of this encounter
--- OUTSIDE RECORDS SUMMARY | 2025-05-13 17:49 | XMS_ITS | Encounter Summary ---
Author Organization [facility] Facility Care Team Providers Care Administrative And Program Specialist Name Role Phone Loco Linares MD Primary Care Provider +1 [phone] Peewee Cornelius MD Unavailable [phone] Encounter Details Date Type Department Care Team (Latest Contact Info) Description 06/09/2018 Orders Only [facility] CLINCONV ProviderMadai MD [address] [place] [address] Social History Tobacco Use Types Packs/Day Years Used Date Smoking Tobacco: Never Assessed Sex and Gender Information Value Date Recorded Sex Assigned at Not on file Legal Sex Male 2:53 AM MEDICAL AND SCIENTIFIC ILLUSTRATOR Gender Identity Not on file Sexual Orientation Not on file documented as of this encounter Plan of Treatment Not on file documented as of this encounter Procedures Procedure Name Priority Date/Time Associated Diagnosis Comments CARDIOLOGY REPORT 06/09/2018 12: 00 AM MEDICAL AND SCIENTIFIC ILLUSTRATOR documented in this encounter Results * CARDIOLOGY REPORT (06/09/2018 12:00 AM MEDICAL AND SCIENTIFIC ILLUSTRATOR) Anatomical Region Laterality Modality Other Narrative 06/09/2018 12:00 AM MEDICAL AND SCIENTIFIC ILLUSTRATOR Ordered by an unspecified provider. Historical Provider CV CARDIAC SERVICES CARMELO MEDRANO Final Result documented in this encounter Visit Diagnoses Not on filedocumented in this encounter Care Teams Administrative And Program Specialist Relationship Specialty Start Date End Date Loco Linares MD PCP - General Family Medicine 12/06/18 Peewee Cornelius MD [address] [place] [address] Librarian Specialist Cardiology 04/15/19 documented as of this encounter
--- OUTSIDE RECORDS SUMMARY | 2025-05-13 17:49 | XMS_ITS | Encounter Summary ---
Author Organization [facility] Facility Care Team Providers Care Mechanic Welder Truck Driver Name Role Phone Loco Linares MD Primary Care Provider +1 [phone] Peewee Cornelius MD Unavailable [phone] Encounter Details Date Type Department Care Team (Latest Contact Info) Description 10/02/2018 Orders Only [facility]G CLINCONV Provider, MD Madai [address] [place] [address] Social History Tobacco Use Types Packs/Day Years Used Date Smoking Tobacco: Never Assessed Sex and Gender Information Value Date Recorded Sex Assigned at Not on file Legal Sex Male 2:53 AM TABLE RUNNER Gender Identity Not on file Sexual Orientation Not on file documented as of this encounter Plan of Treatment Not on file documented as of this encounter Procedures Procedure Name Priority Date/Time Associated Diagnosis Comments SCAN - LABS 10/03/2018 12:00 AM TABLE RUNNER documented in this encounter Results * SCAN - LABS (10/03/2018 12:00 AM TABLE RUNNER) Narrative 10/03/2018 12:00 AM TABLE RUNNER Ordered by an unspecified provider. Historical Provider Final Res ult documented in this encounter Visit Diagnoses Not on filedocumented in this encounter Care Teams Mechanic Welder Truck Driver Relationship Specialty Start Date End Date Loco Linares MD PCP - General Family Medicine 12/06/18 Peewee Cornelius MD [address] [place] [address] Minilab Operator Cardiology 04/15/19 documented as of this encounter
--- OUTSIDE RECORDS SUMMARY | 2025-05-13 17:49 | XMS_ITS | Clinical Summary ---
Author Organization [facility] Address [address] [place] [address] Care Team Providers Care Him Specialists Name Role Phone Loco Linares MD Primary Care Provider [phone] Peewee Cornelius MD Unavailable [phone] Allergies No known active allergies Medications isosorbide [...] BY MOUTH EVERY DAY 90 tablet 1 11/09/2024 Active Active Problems Problem Noted Date Diagnosed Date Coronary artery disease invo lving [place] coronary artery of [place] heart without angina pectoris 11/17/2020 ICD (implantable cardioverter-defibrillator) in place 12/11/2018 Assessment & Plan (09/15/2020 3:34 PM ELECTRICAL TROUBLESHOOTER): Check today shows normal function. Replacement device [...] 12/11/2018 Assessment & Plan (08/01/2020 11:44 AM ELECTRICAL TROUBLESHOOTER): Remotely ablated. No recurrence. No indication for [...] 02/20/2016 Assessment & Plan (08/01/2020 11:43 AM ELECTRICAL TROUBLESHOOTER): Will be symptomatic without device replacement. Histogram showed good rate response. Assessment & Plan (12/10/2019 2:13 PM CDT): Histogram showed good rate response. Cardiomyopathy 02/03/2016 Overview (04/16/2019): Last echo showed normal LV function. Repeat the echo done on the during atrial flutter showed no cardiomyopathy with the ejection fraction around the 25-30%. Assessment & Plan (09/15/2020 3:34 PM ELECTRICAL TROUBLESHOOTER): Class 1. Continue lisinopril Imdur Toprol spironolactone Assessment & Plan (08/01/2020 11:43 AM ELECTRICAL TROUBLESHOOTER): Improved. Continue Toprol and lisinopril. Assessment & Plan (12/10/2019 2:14 PM CDT): Continue Imdur lisinopril and Toprol and spironolactone. Pulmonary emboli 02/03/2016 Smoking 02/03/2016 Abscess of tonsil 07/19/2014 Resolved Problems Problem Noted Date Diagnosed Date Resolved Date Coronary artery disease of n ative artery of [place] heart with stable angina pectoris 04/16/2019 11/17/2020 Assessment & Plan (09/15/2020 3:34 PM ELECTRICAL TROUBLESHOOTER): Continue aspirin Lipitor Toprol Assessment & Plan (12/10/2019 2:15 PM CDT): Continue aspirin and statin Dyslipidemia 02/03/2016 07/10/2021 Assessment & Plan (08/01/2020 11:44 AM ELECTRICAL TROUBLESHOOTER): Continue statin Encounters Date Type Department Care Team Description 05/05/2025 Telephone [facility] Cardiology [address] [facility] [address] [address] [place] [address] Peewee Cornelius MD 05/03/2025 7:00 AM CDT Ancillary Procedure [facility] Cardiology [facility] [facility] [facility] [address] [place] [address] Ischemic cardiomyopathy; ICD (implantable cardioverter-defibri llator) in place; Sick sinus syndrome (HCC) from Last 3 Months Surgical History Surgery Date Site/Laterality Comments ABLATION Medical History Medical History Date Comments CAD (coronary artery disease) Cardiomyopathy A-fib (HCC) Sleep apnea Dyslipidemia Pulmonary emboli [...] on file Legal Sex Male 2:53 AM ELECTRICAL TROUBLESHOOTER Gender Identity Not on file Sexual Orientation Not on file Obstetrics History Last Filed Vital Signs Vital Sign Reading Time Taken Comments Blood Pressure 100/54 01/28/2025 11:44 AM CDT Pulse 81 01/28/2025 11:44 AM CDT Temperature 36.5 C (97.7 F) 01/08/2022 4:33 PM CDT Respiratory Rate - - Oxygen Saturation 96% 07/11/2023 1:31 PM ELECTRICAL TROUBLESHOOTER Inhaled Oxygen Concentration - - Weight 85.9 kg (189 lb 6.4 oz) 01/28/2025 11:44 AM CDT Height 170.2 cm (5' 7) 01/28/2025 11:44 AM CDT Body Mass Index 29.66 01/28/2025 11:44 AM CDT Plan of Treatment Health Maintenance Due Date [...] 65+ 2023 Covid-19 Vaccine (2 - season) 03/29/202505/2021 Influenza Vaccine (#1) 2025 Insurance Care Teams Him Specialists Relationship Specialty Start Date End Date Loco Linares MD PCP - General Family Medicine 12/06/18 Peewee Cornelius MD [address] [place] [address] Product Director Cardiology 04/15/19
--- OUTSIDE RECORDS SUMMARY | 2025-05-13 17:49 | XMS_ITS | Encounter Summary ---
Author Organization [facility] Facility Care Team Providers Care Applications Chemist Name Role Phone Loco Linares MD Primary Care Provider [phone] Peewee Cornelius MD Unavailable [phone] Encounter Details Date Type Department Care Team (Latest Contact Info) Description 08/27/2016 Orders Only [facility] CLINCONV ProviderMadai MD [address] [place] [address] Social History Tobacco Use Types Packs/Day Years Used Date Smoking Tobacco: Never Assessed Sex and Gender Information Value Date Recorded Sex Assigned at Not on file Legal Sex Male 2:53 AM APRICOT WASHER Gender Identity Not on file Sexual Orientation Not on file documented as of this encounter Plan of Treatment Not on file documented as of this encounter Procedures Procedure Name Priority Date/Time Associated Diagnosis Comments CARDIOLOGY REPORT 08/28/2016 12: 00 AM APRICOT WASHER documented in this encounter Results * CARDIOLOGY REPORT (08/28/2016 12:00 AM APRICOT WASHER) Anatomical Region Laterality Modality Other Narrative 08/28/2016 12:00 AM APRICOT WASHER Ordered by an unspecified provider. Historical Provider CV CARDIAC SERVICES CARMELO MEDRANO Final Result documented in this encounter Visit Diagnoses Not on filedocumented in this encounter Care Teams Applications Chemist Relationship Specialty Start Date End Date Loco Linares MD PCP - General Family Medicine 12/06/18 Peewee Cornelius MD [address] [place] [address] Patient Advocate Cardiology 04/15/19 documented as of this encounter
--- OUTSIDE RECORDS SUMMARY | 2025-05-13 17:49 | XMS_ITS | Encounter Summary ---
Author Organization [facility] Facility Care Team Providers Care Technical Illustrator Name Role Phone Loco Linares MD Primary Care Provider [phone] Peewee Cornelius MD Unavailable [phone] Encounter Details Date Type Department Care Team (Latest Contact Info) Description 09/30/2015 Orders Only [facility] CLINCONV ProviderMadai MD [address] [place] [address] Social History Tobacco Use Types Packs/Day Years Used Date Smoking Tobacco: Never Assessed Sex and Gender Information Value Date Recorded Sex Assigned at Not on file Legal Sex Male 2:53 AM SOLAR CREW MEMBER Gender Identity Not on file Sexual Orientation [...] on filedocumented in this encounter Care Teams Technical Illustrator Relationship Specialty Start Date End Date Loco Linares MD PCP - General Family Medicine 12/06/18 Peewee Cornelius MD [address] [place] [address] Sliver Lap Tender Cardiology 04/15/19 documented as of this encounter
--- OUTSIDE RECORDS SUMMARY | 2025-05-13 17:50 | XMS_ITS | Encounter Summary ---
Author Organization [facility] Facility Care Team Providers Care Rustic Fence Builder Name Role Phone Looc Linares MD Primary Care Provider [phone] Peewee Cornelius MD Unavailable [phone] Encounter Details Date Type Department Care Team (Latest Contact Info) Description 12/09/2016 Orders Only [facility] CLINCONV ProviderMadai MD [address] [place] [address] Social History Tobacco Use Types Packs/Day Years Used Date Smoking Tobacco: Never Assessed Sex and Gender Information Value Date Recorded Sex Assigned at Not on file Legal Sex Male 2:53 AM POLISHER BALANCE SCREWHEAD Gender Identity Not on file Sexual Orientation [...] on filedocumented in this encounter Care Teams Rustic Fence Builder Relationship Specialty Start Date End Date Loco Linares MD PCP - General Family Medicine 12/06/18 Peewee Cornelius MD [address] [place] [address] Boil Off Machine Operator Cloth Cardiology 04/15/19 documented as of this encounter
--- OUTSIDE RECORDS SUMMARY | 2025-05-13 17:50 | XMS_ITS | Encounter Summary ---
Author Organization [facility] Facility Care Team Providers Care Engine Lathe Operator Name Role Phone Loco Linares MD Primary Care Provider [phone] Peewee Cornelius MD Unavailable [phone] Encounter Details Date Type Department Care Team (Latest Contact Info) Description 02/17/2017 Orders Only [facility] CLINCONV ProviderMadai MD [address] [place] [address] Social History Tobacco Use Types Packs/Day Years Used Date Smoking Tobacco: Never Assessed Sex and Gender Information Value Date Recorded Sex Assigned at Not on file Legal Sex Male 2:53 AM ANTHROPOLOGY FACULTY MEMBER Gender Identity Not on file Sexual [...] on filedocumented in this encounter Care Teams Engine Lathe Operator Relationship Specialty Start Date End Date Loco Linares MD PCP - General Family Medicine 12/06/18 Peewee Cornelius MD [address] [place] [address] Material Controller Cardiology 04/15/19 documented as of this encounter
--- OUTSIDE RECORDS SUMMARY | 2025-05-13 17:50 | XMS_ITS | Encounter Summary ---
Author Organization [facility] Facility Care Team Providers Care Institutional Custodian Name Role Phone Loco Linares MD Primary Care Provider [phone] Peewee Cornelius MD Unavailable [phone] Encounter Details Date Type Department Care Team (Latest Contact Info) Description 05/06/2017 Orders Only [facility]G CLINCONV ProviderMadai MD [address] [place] [address] Social History Tobacco Use Types Packs/Day Years Used Date Smoking Tobacco: Never Assessed Sex and Gender Information Value Date Recorded Sex Assigned at Not on file Legal Sex Male 2:53 AM PEDIATRIC PSYCHIATRIST Gender Identity Not on file Sexual Orientation [...] on filedocumented in this encounter Care Teams Institutional Custodian Relationship Specialty Start Date End Date Loco Linares MD PCP - General Family Medicine 12/06/18 Peewee Cornelius MD [address] [place] [address] [address] Bricklayer Supervisor Cardiology 04/15/19 documented as of this encounter
--- OUTSIDE RECORDS SUMMARY | 2025-05-13 17:50 | XMS_ITS | Encounter Summary ---
Author Organization [facility] Facility Care Team Providers Care Incident Response Lead Name Role Phone Loco Linares MD Primary Care Provider [phone] [phone] Peewee Cornelius MD Unavailable [phone] Encounter Details Date Type Department Care Team (Latest Contact Info) Description 12/09/2017 Orders Only [facility]G CLINCONV ProviderMadai MD [address] [place] [address] Social History Tobacco Use Types Packs/Day Years Used Date Smoking Tobacco: Never Assessed Sex and Gender Information Value Date Recorded Sex Assigned at Not on file Legal Sex Male 2:53 AM MAINFRAME PROGRAMMER ANALYST Gender Identity Not on file Sexual [...] on filedocumented in this encounter Care Teams Incident Response Lead Relationship Specialty Start Date End Date Loco Linares MD PCP - General Family Medicine 12/06/18 Peewee Cornelius MD [address] [place] [address] Supervisor Assembly And Packing Cardiology 04/15/19 documented as of this encounter
--- OUTSIDE RECORDS SUMMARY | 2025-05-13 17:50 | XMS_ITS | Encounter Summary ---
Author Organization [facility] Facility Care Team Providers Care Metal Furniture Assembly Supervisor Name Role Phone Loco Linares MD Primary Care Provider [phone] Peewee Cornelius MD Unavailable [phone] Encounter Details Date Type Department Care Team (Latest Contact Info) Description 04/09/2016 Orders Only [facility]G CLINCONV ProviderMadai MD [address] [place] [address] Social History Tobacco Use Types Packs/Day Years Used Date Smoking Tobacco: Never Assessed Sex and Gender Information Value Date Recorded Sex Assigned at Not on file Legal Sex Male 2:53 AM PATROL MOTHER Gender Identity Not on file Sexual Orientation [...] on filedocumented in this encounter Care Teams Metal Furniture Assembly Supervisor Relationship Specialty Start Date End Date Loco Linares MD PCP - General Family Medicine 12/06/18 Peewee Cornelius MD [address] [place] [address] Splitting Machine Operator Cardiology 04/15/19 documented as of this encounter
--- OUTSIDE RECORDS SUMMARY | 2025-05-13 17:50 | XMS_ITS | Encounter Summary ---
Author Organization [facility] Facility Care Team Providers Care Housing Relocation Name Role Phone Loco Linares MD Primary Care Provider [phone] Peewee Cornelius MD Unavailable [phone] Encounter Details Date Type Department Care Team (Latest Contact Info) Description 03/11/2017 Orders Only [facility]G CLINCONV ProviderMadai MD [address] [place] [address] Social History Tobacco Use Types Packs/Day Years Used Date Smoking Tobacco: Never Assessed Sex and Gender Information Value Date Recorded Sex Assigned at Not on file Legal Sex Male 2:53 AM PLATFORM POWER TECHNICIAN Gender Identity Not on file Sexual [...] filedocumented in this encounter Care Teams Housing Relocation Relationship Specialty Start Date End Date Loco Linares MD PCP - General Family Medicine 12/06/18 Peewee Cornelius MD [address] [place] [address] Cross Country Truck Driver Cardiology 04/15/19 documented as of this encounter
--- OUTSIDE RECORDS SUMMARY | 2025-05-13 17:50 | XMS_ITS | Encounter Summary ---
Author Organization [facility] Facility Care Team Providers Care Sawmill Supervisor Name Role Phone Loco Linares MD Primary Care Provider [phone] Peewee Cornelius MD Unavailable [phone] Encounter Details Date Type Department Care Team (Latest Contact Info) Description 09/07/2013 Orders Only [facility]G CLINCONV ProviderMadai MD [address] [place] [address] Social History Tobacco Use Types Packs/Day Years Used Date Smoking Tobacco: Never Assessed Sex and Gender Information Value Date Recorded Sex Assigned at Not on file Legal Sex Male 2:53 AM AD TAKER Gender Identity Not on file Sexual Orientation [...] on filedocumented in this encounter Care Teams Sawmill Supervisor Relationship Specialty Start Date End Date Loco Linares MD PCP - General Family Medicine 12/06/18 Peewee Cornelius MD [address] [place] [address] Application Counselor Cardiology 04/15/19 documented as of this encounter
--- OUTSIDE RECORDS SUMMARY | 2025-05-13 17:50 | XMS_ITS | Encounter Summary ---
Author Organization [facility] Facility Care Team Providers Care Coroner Name Role Phone Loco Linares MD Primary Care Provider +[phone] Peewee Cornelius MD Unavailable [phone] Encounter Details Date Type Department Care Team (Latest Contact Info) Description 05/14/2017 Orders Only [facility]G CLINCONV ProviderMadai MD [address] [place] [address] Social History Tobacco Use Types Packs/Day Years Used Date Smoking Tobacco: Never Assessed Sex and Gender Information Value Date Recorded Sex Assigned at Not on file Legal Sex Male 2:53 AM LENS AND FRAMES PRESCRIPTION CLERK Gender Identity Not on file Sexual Orientation [...] on filedocumented in this encounter Care Teams Coroner Relationship Specialty Start Date End Date Loco Linares MD PCP - General Family Medicine 12/06/18 Peewee Cornelius MD [address] [facility] [address] [place] [address] Patent Leather Sorter Cardiology 04/15/19 documented as of this encounter
--- OUTSIDE RECORDS SUMMARY | 2025-05-13 17:50 | XMS_ITS | Encounter Summary ---
Author Organization [facility] Facility Care Team Providers Care Value Stream Manager Name Role Phone Loco Linares MD Primary Care Provider +1 [phone] Peewee Cornelius MD Unavailable [phone] Encounter Details Date Type Department Care Team (Latest Contact Info) Description 11/26/2016 Orders Only [facility] CLINCONV ProviderMadai MD [address] [place] [address] Social History Tobacco Use Types Packs/Day Years Used Date Smoking Tobacco: Never Assessed Sex and Gender Information Value Date Recorded Sex Assigned at Not on file Legal Sex Male 2:53 AM MATH SPECIALIST Gender Identity Not on file Sexual Orientation [...] on filedocumented in this encounter Care Teams Value Stream Manager Relationship Specialty Start Date End Date Loco Linares MD PCP - General Family Medicine 12/06/18 Peewee Cornelius MD [address] [place] [address] Roof Designer Cardiology 04/15/19 documented as of this encounter
--- OUTSIDE RECORDS SUMMARY | 2025-05-13 17:50 | XMS_ITS | Encounter Summary ---
Author Organization [facility] Facility Care Team Providers Care Car Unloader Helper Name Role Phone Loco Linares MD Primary Care Provider [phone] [phone] Peewee Cornelius MD Unavailable [phone] Encounter Details Date Type Department Care Team (Latest Contact Info) Description 02/20/2016 Orders Only [facility] CLINCONV ProviderMadai MD [address] [place] [address] Social History Tobacco Use Types Packs/Day Years Used Date Smoking Tobacco: Never Assessed Sex and Gender Information Value Date Recorded Sex Assigned at Not on file Legal Sex Male 2:53 AM MARKETING AREA MANAGER Gender Identity Not on file Sexual [...] on filedocumented in this encounter Care Teams Car Unloader Helper Relationship Specialty Start Date End Date Loco Linares MD PCP - General Family Medicine 12/06/18 Peewee Cornelius MD [address] [place] [address] Telecommunications Clerk Cardiology 04/15/19 documented as of this encounter
--- OUTSIDE RECORDS SUMMARY | 2025-05-13 17:50 | XMS_ITS | Encounter Summary ---
Author Organization [facility] Facility Care Team Providers Care Rivet Sticker Name Role Phone Loco Linares MD Primary Care Provider [phone] Peewee Cornelius MD Unavailable [phone] Encounter Details Date Type Department Care Team (Latest Contact Info) Description 06/16/2016 Orders Only [facility]INCON[facility] Provider, MD Madai [address] [place] [id number] Social History Tobacco Use Types Packs/Day Years Used Date Smoking Tobacco: Never Assessed Sex and Gender Information Value Date Recorded Sex Assigned at Not on file Legal Sex Male 2:53 AM DIRECTOR OF PATIENT SAFETY Gender Identity Not on file Sexual Orientation Not on file documented as of this encounter Plan of Treatment Not on file documented as of this encounter Procedures Procedure Name Priority Date/Time Associated Diagnosis Comments SCAN - LABS 06/05/2016 12:00 AM DIRECTOR OF PATIENT SAFETY documented in this encounter Results * SCAN - LABS (06/05/2016 12:00 AM DIRECTOR OF PATIENT SAFETY) Narrative 06/05/2016 12:00 AM DIRECTOR OF PATIENT SAFETY Ordered by an unspecified provider. Historical Provider Final Res ult documented in this encounter Visit Diagnoses Not on filedocumented in this encounter Care Teams Rivet Sticker Relationship Specialty Start Date End Date Loco Linares MD PCP - General Family Medicine 12/06/18 Peewee Cornelius MD [address] [place] [address] [facility] 04/15/19 documented as of this encounter
--- OUTSIDE RECORDS SUMMARY | 2025-05-13 17:50 | XMS_ITS | Encounter Summary ---
Author Organization [facility] Facility Care Team Providers Care Molded Candles Wicker Name Role Phone Loco Linares MD Primary Care Provider [phone] Peewee Cornelius MD Unavailable [phone] Encounter Details Date Type Department Care Team (Latest Contact Info) Description 05/07/2017 Orders Only [facility] CLINCONV ProviderMadai MD [address] [place] [id number] Social History Tobacco Use Types Packs/Day Years Used Date Smoking Tobacco: Never Assessed Sex and Gender Information Value Date Recorded Sex Assigned at Not on file Legal Sex Male 2:53 AM CENTRAL SUPPLY ASSISTANT Gender Identity Not on file Sexual Orientation [...] on filedocumented in this encounter Care Teams Molded Candles Wicker Relationship Specialty Start Date End Date Loco Linares MD PCP - General Family Medicine 12/06/18 Peewee Cornelius MD [address] [place] [address] [address] [facility] 04/15/19 documented as of this encounter
--- OUTSIDE RECORDS SUMMARY | 2025-05-13 17:50 | XMS_ITS | Encounter Summary ---
Author Organization [facility] Facility Care Team Providers Care Coagulating Operator Name Role Phone Loco Linares MD Primary Care Provider [phone] Peewee Cornelius MD Unavailable [phone] Encounter Details Date Type Department Care Team (Latest Contact Info) Description 07/11/2017 Orders Only [facility] CLINCONV ProviderMadia MD [address] [place] [id number] Social History Tobacco Use Types Packs/Day Years Used Date Smoking Tobacco: Never Assessed Sex and Gender Information Value Date Recorded Sex Assigned at Not on file Legal Sex Male 2:53 AM BANKING MANAGER Gender Identity Not on file Sexual Orientation Not on file documented as of this encounter Plan of Treatment Not on file documented as of this encounter Procedures Procedure Name Priority Date/Time Associated Diagnosis Comments CARDIOLOGY REPORT 07/11/2017 12: 00 AM BANKING MANAGER documented in this encounter Results * CARDIOLOGY REPORT (07/11/2017 12:00 AM BANKING MANAGER) Anatomical Region Laterality Modality Other Narrative 07/11/2017 12:00 AM BANKING MANAGER Ordered by an unspecified provider. Historical Provider [facility] CARMELO MEDRANO Final Result documented in this encounter Visit Diagnoses Not on filedocumented in this encounter Care Teams Coagulating Operator Relationship Specialty Start Date End Date Loco Linares MD PCP - General Family Medicine 12/06/18 Peewee Cornelius MD [address] [place] [address] Supervisor [facility] 04/15/19 documented as of this encounter
== END 2025-05-13 16:06 | disposition home or self-care (01) ==
PROVIDERS: PCP Family Medicine; Visit Provider Nurse Practitioner Family
DX: R91.8 Other nonspecific abnormal finding of lung field (principal)
CPT/HCPCS: 71250